=== PATIENT | female | born 1955 | race Caucasian/White ===

== ENCOUNTER 2016-11-26 11:21 | Observation (INO) | payer MEDICARE, MEDICAID ==
[2016-11-26] MEDS ORDERED: diphenhydrAMINE 50 MG/ML SDV IVPUSH SCH (20:45)
--- NOTE | 2016-11-26 20:49 | PCM.HP ---
H&P History of Present Illness - General Date of Service: 11/26/16 Admit Problem/Dx: Admission Diagnosis/Problem Admission Diagnosis/Problem Low back pain Source of Information: Patient History Limitations: Reports: No limitations - History of Present Illness Initial Comments - Free Text/Narative: History and physical: History of present illness: [Patient present to the hospital for direct admission on the evening of November for intractable low back pain. She was evaluated in the clinic earlier this morning and was treated with Toradol, Norflex and fentanyl. She was given prescriptions for hydrocodone, prednisone, cyclobenzaprine and ketorolac. Took medications as prescribed and has not had any relief from pain or gotten any sleep. She was evaluated by Dr. meade on November 21 and have an appointment with a neurosurgeon on November 30. She didn't feel she could make it until then without pain medication. She has a long-standing history of low back pain and surgery. She's had 3 or 4 episodes of significant low back discomfort in the past 6 months. She feels that time her pain is worse but the characteristics are unchanged from previous episodes. She complains of pain across her low back with radiation down both legs, worse on the left than the right. The pain shoots down her buttocks, behind her knees and into her feet. She has not been able to sleep for more than 2 hours at a time for the past 4 nights she says that she feels delirious due to lack of sleep and her constant pain. She presents this evening requesting admission to the hospital for IV pain medication. She has a history of RA, HTN, GERD. See nurses note for PMH/FH/SH. Review of Systems: As per history of present illness and below otherwise all systems reviewed and negative. Physical exam: HEENT: Atraumatic, normocephalic. Oral mucous membranes are pink and moist. Lungs: Clear to auscultation, breath sounds equal bilaterally. No wheezing crackles or rales. Heart: S1-S2, regular rate and rhythm. No murmurs gallops clicks or rubs. Abdomen: Overweight. Soft, nondistended, nontender. Negative for costovertebral tenderness. Pelvis: Stable, nontender. Genitourinary: Deferred. Rectal: Deferred. Extremities: Lower extremities are atraumatic in appearance and without deformity. Lower legs are negative for cords or calf pain. Neurovascular unremarkable. Neuro: Awake, alert, oriented. Motor and sensory unremarkable throughout. Exam nonfocal. Lower Back Pain Score (Numeric/FACES): 7 - Related Data Allergies/Adverse Reactions: Allergies Allergy/AdvReac Type Severity Reaction Status Date / Time abatacept [From Orencia] Allergy Airway Verified 10/12/15 13:24 Tightness cefaclor [From Ceclor] Allergy Rash Verified 10/12/15 13:24 ciprofloxacin [From Cipro] Allergy Cannot Verified 10/12/15 13:24 Remember ciprofloxacin HCl Allergy Cannot Verified 10/12/15 13:24 [From Cipro] Remember infliximab [From Remicade] Allergy Airway Verified 10/12/15 13:24 Tightness latex Allergy Rash Verified 10/12/15 13:24 Penicillins Allergy Airway Verified 10/12/15 13:24 Tightness tetracycline [Tetracycline] Allergy Rash Verified 10/12/15 13:24 Tape Allergy Rash Uncoded 10/12/15 13:24 Home Medications: Home Meds Cholecalciferol (Vitamin D3) [Vitamin D] 2,000 unit PO DAILY 10/18/13 [History] Nebivolol [Bystolic] 5 mg PO DAILY 10/18/13 [History] Ibuprofen [Advil] 400 mg PO ASDIRECTED PRN 02/21/14 [History] Cyclobenzaprine [Flexeril] 1 - 2 tab PO Q8HR PRN 12/05/14 [History] PEG 400/Propylene Glycol [Systane 0.4-0.3%] 1 drop EYEBOTH DAILY 12/05/14 [ History] Ranitidine [Zantac] 150 mg PO DAILY PRN 12/05/14 [History] Allopurinol [Zyloprim] 150 mg PO DAILY 11/26/16 [History] Methotrexate [Methotrexate] 0.6 mg SQ WEEKLY 11/26/16 [History] Past Medical History HEENT History: Reports: Cataract Cardiovascular History: Reports: Hypertension Respiratory History: Reports: Other (see below) Other Respiratory History: seasonal allergy induced asthma Gastrointestinal History: Reports: GERD Musculoskeletal History: Reports: Fibromyalgia, Gout, RA Psychiatric History: Reports: Anxiety Endocrine/Metabolic History: Reports: Vitamin D deficiency Dermatologic History: Reports: Eczema - Past Surgical History GI Surgical History: Reports: Cholecystectomy Neurological Surgical History: Reports: Spinal fusion Musculoskeletal Surgical History: Reports: Knee replacement, Other (see below) Other Musculoskeletal Surgeries/Procedures:: L4 and L5 fusion Social & Family History - Family History Family Medical History: Noncontributory - Tobacco Use Smoking Status *Q: Never Smoker Years of Tobacco use: 10 Used Tobacco, but Quit: Yes Month Tobacco Last Used: 8 years ago Second Hand Smoke Exposure: No - Alcohol Use Days Per Week of Alcohol Use: 0 - Recreational Drug Use Recreational Drug Use: No H&P Review of Systems - Review of Systems: Review Of Systems: ROS reveals no pertinent complaints other than HPI. Exam - Exam Exam: See Below - Vital Signs Vital Signs: Last Vital Signs Temp 97.6 F 11/26/16 19:50 Pulse 82 11/26/16 19:50 Resp 20 11/26/16 19:50 BP 149/75 H 11/26/16 19:50 Pulse Ox 98 11/26/16 19:50 Weight: 223 lb - Patient Data Lab Results last 24 hrs: Laboratory Results - last 24 hr 11/26/16 Range/Units 11:26 Urine Color Yellow (YELLOW) Urine Appearance Clear (CLEAR) Urine pH 6.0 (4.5-8.0) Ur Specific [place] 1.013 (1.003-1.020) Urine Protein Negative (NEGATIVE) mg/dL Urine Glucose (UA) Negative (NEGATIVE) mg/dL Urine Ketones Negative (NEGATIVE) mg/dL Urine Occult Blood Negative (NEGATIVE) Urine Nitrite Negative (NEGATIVE) Urine Bilirubin Negative (NEGATIVE) Urine Urobilinogen 0.2 (0.2-1.0) EU/dL Ur Leukocyte Esterase Small H (NEGATIVE) Urine RBC Not seen (0-5) /HPF Urine WBC 0-5 (0-5) /HPF Ur Epithelial Cells Few H (NOT SEEN) /HPF Urine Bacteria Occasional H (NOT SEEN) /HPF Urine Mucus Few H (NOT SEEN) /HPF *Q Meaningful Use (ADM) - VTE *Q VTE Criteria *Q: - Stroke *Q Stroke Criteria *Q: - AMI *Q AMI Criteria *Q: Problem List Initiated/Reviewed/Updated: Yes Orders Last 24hrs: Active Orders 24 hr Category Date Time Status Patient Status [ADT] Routine ADT 11/26/16 20:32 Ordered Oxygen Therapy [RC] PRN Care 11/26/16 20:32 Ordered Up With Assistance [RC] ASDIRECTED Care 11/26/16 20:32 Ordered VTE/DVT Education [RC] PER UNIT ROUTINE Care 11/26/16 20:32 Ordered Vital Signs [RC] Q4H Care 11/26/16 20:32 Ordered Regular Diet [DIET] Diet 11/27/16 Breakfast Ordered Enoxaparin [Lovenox] Med 11/26/16 20:45 Ordered 40 mg SUBCUT DAILY HYDROmorphone [Dilaudid] Med 11/26/16 20:32 Ordered 1 mg IVPUSH Q2H PRN Ondansetron [Zofran] Med 11/26/16 20:32 Ordered 4 mg IV Q4H PRN diphenhydrAMINE [Benadryl] Med 11/26/16 20:45 Ordered 25 mg IVPUSH Q4H methylPREDNISolone Sod Succ [Solu-MEDROL] Med 11/27/16 06:00 Once 125 mg IVPUSH ONETIME ONE Resuscitation Status Routine Resus Stat 11/26/16 20:32 Ordered Medication Orders Diphenhydramine HCl (Benadryl) 25 mg IVPUSH Q4H QI Enoxaparin Sodium (Lovenox) 40 mg SUBCUT DAILY QI Hydromorphone HCl (Dilaudid) 1 mg IVPUSH Q2H PRN PRN Reason: Pain (severe 7-10) Methylprednisolone Sodium Succinate (Solu-Medrol) 125 mg IVPUSH ONETIME ONE Stop: 11/27/16 06:01 Ondansetron HCl (Zofran) 4 mg IV Q4H PRN PRN Reason: Nausea/Vomiting Assessment/Plan Comment:: Admit For observation for IV pain medication, muscle relaxers. See orders. Anticipate the patient will be in observation less than 2 overnights.
[2016-11-26] MEDS ORDERED: diphenhydrAMINE 50 MG/ML SDV IVPUSH PRN ×2 (20:57→21:11)
[2016-11-26] MEDS: Enoxaparin 40 MG/0.4 ML Syringe SUBCUT SCH (21:05)
[2016-11-26] MEDS: Ondansetron 4 MG/2 ML SDV IV PRN (21:06)
[2016-11-26] MEDS: HYDROmorphone 1 MG/ML Syringe IVPUSH PRN (21:07)
[2016-11-27] MEDS: HYDROmorphone 1 MG/ML Syringe IVPUSH PRN ×2 (05:08→20:50)
[2016-11-27] MEDS ORDERED: methylPREDNISolone Sodium Succinate 125 MG/2 ML SDV IVPUSH ONE ×2 (06:00→08:00)
[2016-11-27] MEDS: Ondansetron 4 MG/2 ML SDV IV PRN (12:06)
[2016-11-27] MEDS ORDERED: Ketorolac 30 MG/ML SDV IVPUSH ONE (13:58)
--- NOTE | 2016-11-27 15:21 | PCM.PN ---
- General Info Date of Service: 11/27/16 Admission Dx/Problem (Free Text): Admission Diagnosis/Problem Admission Diagnosis/Problem Low back pain Subjective Update: Patients was admitted yesterday for observation for low back pain. She states that she slept well last night with Benadryl and Dilaudid. Her back pain has improved significantly. She feels nervous to be discharged home today and doesn' t mind stay one more night if it would be beneficial for her. She has no new symptoms. Overall back pain has improved. she continues to have radiation of pain down her left leg that is mildly improved. Nursing staff have no new complaints or concerns for her. Functional Status: Reports: tolerating diet. Denies: new symptoms - Review of Systems General: Denies: Fever, Malaise, Chills Pulmonary: Reports: no symptoms Cardiovascular: Reports: No Symptoms Gastrointestinal: Reports: No symptoms Musculoskeletal: Reports: back pain Skin: Reports: no symptoms Neurological: Denies: Confusion, Headache, Numbness, Tingling, Weakness Psychiatric: Reports: no symptoms - Patient Data Vitals - most recent: Last Vital Signs Temp 97.2 F 11/27/16 07:38 Pulse 68 11/27/16 07:38 Resp 16 11/27/16 07:38 BP 125/68 11/27/16 07:38 Pulse Ox 99 11/27/16 07:38 Weight - most recent: 223 lb I&O - last 24 hours: Intake & Output 11/27/16 11/27/16 11/27/16 06:59 14:59 22:59 Intake Total 880 Balance 880 Med Orders - Current: Current Medications Diphenhydramine HCl (Benadryl) 25 mg IVPUSH BID PRN PRN Reason: Itching Last Admin: 11/26/16 21:17 Dose: 25 mg Enoxaparin Sodium (Lovenox) 40 mg SUBCUT DAILY@2100 QI Last Admin: 11/26/16 21:05 Dose: 40 mg Hydromorphone HCl (Dilaudid) 1 mg IVPUSH Q2H PRN PRN Reason: Pain (severe 7-10) Last Admin: 11/27/16 05:08 Dose: 1 mg Ondansetron HCl (Zofran) 4 mg IV Q4H PRN PRN Reason: Nausea/Vomiting Last Admin: 11/27/16 12:06 Dose: 4 mg Discontinued Medications Diphenhydramine HCl (Benadryl) 25 mg IVPUSH Q4H QI Last Admin: 11/26/16 21:43 Dose: Not Given Diphenhydramine HCl (Benadryl) 25 mg IVPUSH Q4H PRN PRN Reason: Insomnia Ketorolac Tromethamine (Toradol) 30 mg IVPUSH ONETIME ONE Stop: 11/27/16 13:59 Last Admin: 11/27/16 14:17 Dose: 30 mg Methylprednisolone Sodium Succinate (Solu-Medrol) 125 mg IVPUSH ONETIME ONE Stop: 11/27/16 06:01 Last Admin: 11/27/16 07:49 Dose: Not Given Methylprednisolone Sodium Succinate (Solu-Medrol) 125 mg IVPUSH ONETIME ONE Stop: 11/27/16 08:01 Last Admin: 11/27/16 07:50 Dose: 125 mg - Exam General: alert, oriented Lungs: Clear to auscultation, Normal respiratory effort Cardiovascular: Regular Rate, Regular Rhythm Abdomen: soft, no tenderness Back Exam: No: CVA tenderness (L), CVA tenderness (R) Extremities: no edema, no cyanosis. No: calf tenderness Neurological: no new focal deficit Psy/Mental Status: alert, normal affect, normal mood - Problem List Review Problem List Initiated/Reviewed/Updated: Yes - My Orders Last 24 Hours: My Active Orders 11/26/16 20:32 Patient Status [ADT] Routine Oxygen Therapy [RC] .PRN Up With Assistance [RC] .PRN Vital Signs [RC] 0800,2000 HYDROmorphone [Dilaudid] 1 mg IVPUSH Q2H PRN Ondansetron [Zofran] 4 mg IV Q4H PRN Resuscitation Status Routine 11/26/16 21:00 Enoxaparin [Lovenox] 40 mg SUBCUT DAILY@2100 11/26/16 21:11 diphenhydrAMINE [Benadryl] 25 mg IVPUSH BID PRN 11/26/16 22:47 K Pad [Heat Therapy] [OM.PC] Routine 11/27/16 Breakfast Regular Diet [DIET] - Assessment Assessment:: Low back pain - Plan Plan:: Will keep patient in observation for one more night. Continue current treatments. Add Toradol 30 mg IV today, repeat Solu-Medrol tomorrow a.m. Continue all of her orders. Anticipate the patient will be discharged home following rounds by her PCP tomorrow morning.
[2016-11-27] MEDS: Enoxaparin 40 MG/0.4 ML Syringe SUBCUT SCH (20:50)
[2016-11-28 07:35] VITALS: BP 149/88
[2016-11-28] MEDS ORDERED: methylPREDNISolone Sodium Succinate 125 MG/2 ML SDV IVPUSH SCH (08:00)
[2016-11-28] MEDS: HYDROmorphone 1 MG/ML Syringe IVPUSH PRN (08:23)
[2016-11-28] MEDS ORDERED: Ondansetron 4 MG Tab.DIS PO PRN (10:34)
--- NOTE | 2016-11-29 08:55 | DISCH ---
ADMISSION DIAGNOSIS: Recalcitrant low back pain with radiculopathy. DISCHARGE DIAGNOSIS: RECALCITRANT LOW BACK PAIN WITH RADICULOPATHY. HISTORY: The patient is a 61-year-old, seen multiple times in the clinic. The week prior to admission, she has had a recurrence of her chronic low back pain with multiple acute exacerbations, this last one being the worst. She does have a history of prior lumbar spine surgery. She is actually scheduled to see Neurosurgery in 2 days. Pain became intolerant at home and she presented for admission. HOSPITAL COURSE: The patient was given some IV methylprednisolone, given IV Dilaudid for pain and she had a wonderful response. She is basically at this time laying comfortably in bed without pain. She is not having radicular complaints. She has been up and ambulating out of her bed. She does have anti- inflammatories, muscle relaxers, and p.r.n. pain medications at home. We are going to send her home on oral Dilaudid on a p.r.n. basis, as she feels it gives her the most relief and she feels comfortable going home, doing self cares until she get to Neurosurgery this upcoming Monday, which is 48 hours from now. COMPLICATIONS: During her stay were none. CONSULTATIONS: PT. DISPOSITION: Discharged home. JULIO CÉSAR /[id number]
== END 2016-11-28 15:25 | disposition home or self-care (01) ==
LOC: CC.LAB 11:21 → UNDOADMOB 19:41 → CC.MS 19:41
PROVIDERS: ADMIT Nurse Practitioner Family; ATTEND Family Medicine
DX: M54.5 Low back pain (principal); I10 Essential (primary) hypertension; K21.9 Gastro-esophageal reflux disease without esophagitis; E55.9 Vitamin D deficiency, unspecified; Z79.899 Other long term (current) drug therapy; Z88.0 Allergy status to penicillin; Z88.1 Allergy status to other antibiotic agents; Z91.040 Latex allergy status; Z88.8 Allergy status to other drugs, medicaments and biological substances; Z91.09 Other allergy status, other than to drugs and biological substances; Z90.49 Acquired absence of other specified parts of digestive tract; Z98.890 Other specified postprocedural states
CPT/HCPCS: 81001; 96372; 96374; 96375; 96376; 99217; 99220; 99225; A9270; G0378; J1170; J1200; J1650; J1885; J2405; J2930

== ENCOUNTER 2017-11-28 04:26 | Emergency (ER) | payer MEDICARE, MEDICAID ==
[2017-11-28 04:37] VITALS: BP 135/84
--- NOTE | 2017-11-28 05:04 | EDM.PDOC ---
ED HPI GENERAL MEDICAL PROBLEM - General Chief Complaint: General Stated Complaint: SHAKING ARMS Time Seen by Provider: 11/28/17 05:03 Source of Information: Reports: Patient History Limitations: Reports: No Limitations - History of Present Illness INITIAL COMMENTS - FREE TEXT/NARRATIVE: Santi is a 62 year old female with PMH of rheumatoid arthritis, Sjogrens syndrome, PCOS, hypertension, fibromyalgia, chronic low back pain, asthma, overactive bladder, gout, and GERD, who presents to the ED with c/o a 10 minute episode of "jerky arm and leg movements." She reports she woke up from sleep and her arms and legs were shaking. She reports her legs stopped immediately, but her arms continued to "twitch" involuntarily for about 10 minutes. She reports she then laid back down and sort of felt nauseaous and short of breath. This lasted about half hour. She reports that upon ER presentation she does feel better. All of her symptoms have resolved, but she does continue to have some nausea. She is alert and oriented and in no acute distress. She reports that she has had a viral URI for the past few weeks. Reports that as of recent her cough has improved. She continues to have nasal congestion. She reports that she also has a stiff neck and right shoulder and a headache. She reports her eyes have been red and swollen intermittently. She does have a history of seasonal allergies. Also reports that this evening she has had more nocturia than usual. She denies any abdominal pain, chest pain, diarrhea, vomiting, constipation, cough, fever, chills, numbness, tingling. Onset: Today, Sudden Onset Date: 11/28/17 Onset Time: 04:00 Duration: Resolved Prior to Arrival Location: Reports: Upper Extremity, Left, Upper Extremity, Right, Lower Extremity, Left, Lower Extremity, Right Associated Symptoms: Reports: Headaches, Malaise, Nausea/Vomiting, Shortness of Breath, Weakness. Denies: Confusion, Chest Pain, Cough, cough w sputum, Diaphoresis, Fever/Chills, Loss of Appetite, Rash, Seizure, Syncope - Related Data Allergies Allergy/AdvReac Type Severity Reaction Status Date / Time abatacept [From Orencia] Allergy Airway Verified 11/28/17 04:44 Tightness cefaclor [From Ceclor] Allergy Rash Verified 11/28/17 04:44 ciprofloxacin [From Cipro] Allergy Cannot Verified 11/28/17 04:44 Remember ciprofloxacin HCl Allergy Cannot Verified 11/28/17 04:44 [From Cipro] Remember infliximab [From Remicade] Allergy Airway Verified 11/28/17 04:44 Tightness latex Allergy Rash Verified 11/28/17 04:44 Penicillins Allergy Airway Verified 11/28/17 04:44 Tightness tetracycline [Tetracycline] Allergy Rash Verified 11/28/17 04:44 Tape Allergy Rash Uncoded 11/28/17 04:44 Home Meds: Home Meds Cholecalciferol (Vitamin D3) [Vitamin D3] 2,000 unit PO DAILY 10/18/13 [History] Nebivolol [Bystolic] 5 mg PO DAILY 10/18/13 [History] Ibuprofen [Advil] 400 mg PO ASDIRECTED PRN 02/21/14 [History] Cyclobenzaprine [Flexeril] 1 - 2 tab PO Q8HR PRN 12/05/14 [History] PEG 400/Propylene Glycol [Systane Lubricant] 1 drop EYEBOTH DAILY 12/05/14 [ History] Ranitidine [Zantac] 150 mg PO DAILY PRN 12/05/14 [History] Allopurinol [Zyloprim] 150 mg PO DAILY 11/26/16 [History] Methotrexate 0.6 mg SQ WEEKLY 11/26/16 [History] HYDROmorphone HCl [Dilaudid] 2 mg PO Q4HR #20 tablet 11/28/16 [Rx] Ascorbate Calcium [Vitamin C] 500 mg PO DAILY 11/28/17 [History] Folic Acid 0.8 mg PO DAILY 11/28/17 [History] Past Medical History HEENT History: Reports: Cataract Cardiovascular History: Reports: Hypertension Respiratory History: Reports: Other (See Below) Other Respiratory History: seasonal allergy induced asthma Gastrointestinal History: Reports: GERD Musculoskeletal History: Reports: Fibromyalgia, Gout, RA Psychiatric History: Reports: Anxiety Endocrine/Metabolic History: Reports: Vitamin D Deficiency Dermatologic History: Reports: Eczema - Past Surgical History GI Surgical History: Reports: Cholecystectomy Neurological Surgical History: Reports: Spinal Fusion Musculoskeletal Surgical History: Reports: Knee Replacement, Other (See Below) Social & Family History - Family History Family Medical History: Noncontributory - Tobacco Use Smoking Status *Q: Never Smoker Years of Tobacco use: 10 Used Tobacco, but Quit: Yes Month/Year Tobacco Last Used: 8 years ago Second Hand Smoke Exposure: No - Alcohol Use Days Per Week of Alcohol Use: 0 - Recreational Drug Use Recreational Drug Use: No ED ROS GENERAL - Review of Systems Review Of Systems: See Below Constitutional: Reports: Chills, Weakness, Fatigue, Decreased Appetite. Denies : Fever, Malaise, Night Sweats, Diaphoresis, Weight Loss, Weight Gain HEENT: Reports: Ear Pain (right ), Glasses, Rhinitis, Sinus Problem, Vertigo, Other (photosensitivity, intermittent eye redness and swelling). Denies: Dental Pain, Ear Discharge, Eye Discharge, Eye Pain, Hearing Loss, Nosebleed, Nose Pain, Throat Pain, Throat Swelling, Vision Change Respiratory: Reports: Shortness of Breath (resolved prior to arrival). Denies: Wheezing, Pleuritic Chest Pain, Cough, Sputum, Hemoptysis Cardiovascular: Denies: Chest Pain, Blood Pressure Problem, Claudication, Dyspnea on Exertion, Edema, Lightheadedness, Orthopnea, Palpitations, PND, Syncope Endocrine: Reports: Fatigue GI/Abdominal: Reports: Nausea. Denies: Abdominal Pain, Anorexia, Constipation, Diarrhea, Decreased Appetite, Distension, Stool Incontinence, Vomiting : Reports: Frequency. Denies: Dysuria, Flank Pain, Incontinence, Urgency Musculoskeletal: Reports: Neck Pain, Shoulder Pain (right), Joint Pain, Joint Swelling, Muscle Stiffness. Denies: Arm Pain, Hand Pain, Leg Pain Skin: Reports: Dryness Neurological: Reports: Headache, Tremors (UE, resolved prior to admission), Weakness. Denies: Confusion, Dizziness, Numbness, Paresthesia, Pre-Existing Deficit, Seizure, Syncope, Tingling, Trouble Speaking, Difficulty Walking, Change in Speech, Gait Disturbance Immunologic: Reports: Seasonal Allergy ED EXAM, GENERAL - Physical Exam Exam: See Below Exam Limited By: No Limitations General Appearance: Alert, WD/WN, No Apparent Distress Eye Exam: Bilateral Eye: Normal Fundi, Normal Inspection, PERRL Ears: Normal External Exam, Normal Canal, Hearing Grossly Normal, Normal TMs Nose: Normal Inspection, Normal Mucosa, No Blood Throat/Mouth: Normal Inspection, Normal Lips, Normal Teeth, Normal Gums, Normal Oropharynx, Normal Voice, No Airway Compromise, Other (dry mucous membranes) Head: Atraumatic, Normocephalic. No: Sinus Tenderness Neck: Normal Inspection, Supple, Full Range of Motion, Tender Lateral (right), Tender Midline. No: Lymphadenopathy (L), Lymphadenopathy (R) Respiratory/Chest: No Respiratory Distress, Lungs Clear, Normal Breath Sounds, No Accessory Muscle Use, Chest Non-Tender Cardiovascular: Normal Peripheral Pulses, Regular Rate, Rhythm, No Edema, No Gallop, No JVD, No Murmur, No Rub GI/Abdominal: Normal Bowel Sounds, Soft, Non-Tender, No Organomegaly, No Distention, No Abnormal Bruit, No Mass Back Exam: Normal Inspection, Full Range of Motion, NT Extremities: Normal Inspection, Normal Range of Motion, Non-Tender, Normal Capillary Refill, No Pedal Edema Neurological: Alert, Oriented, CN II-XII Intact, Normal Cognition, Normal Gait, Normal Reflexes, No Motor/Sensory Deficits Psychiatric: Anxious Skin Exam: Warm, Dry, Intact, Normal Color, No Rash Lymphatic: No Adenopathy Course - Vital Signs Last Recorded V/S: Last Vital Signs Temp 96.6 F 11/28/17 04:29 Pulse 66 11/28/17 04:29 Resp 18 11/28/17 04:29 BP 135/84 11/28/17 04:29 Pulse Ox 100 11/28/17 04:29 - Orders/Labs/Meds Orders: Active Orders 24 hr Category Date Time Status UA W/MICROSCOPIC [URIN] Stat Lab 11/28/17 04:45 Ordered Labs: Laboratory Tests 11/28/17 11/28/17 11/28/17 Range/Units 04:45 05:00 05:00 WBC 6.5 (5.0-10.0) 10^3/uL RBC 4.40 (4.00-5.50) 10^6/uL Hgb 12.1 (12.0-16.0) g/dL Hct 36.9 L (37.0-47.0) % MCV 83.9 (82.0-94.0) fL MCH 27.5 (27.0-32.0) pg MCHC 32.8 L (33.0-38.0) g/dL RDW Coeff of Gio 15.6 H (11.0-15.0) % Plt Count 244 (150-400) 10^3/uL Neut % (Auto) 59.2 (35-85) % Lymph % (Auto) 31.3 (10-55) % [place] % (Auto) 6.3 (0-16) % Eos % (Auto) 2.9 (0-5) % Baso % (Auto) 0.3 (0-3) % Neut # (Auto) 3.83 (1.80-7.00) 10^3/uL Lymph # (Auto) 2.03 (1.00-4.80) 10^3/uL [place] # (Auto) 0.41 (0.00-0.80) 10^3/uL Eos # (Auto) 0.19 (0.00-0.45) 10^3/uL Baso # (Auto) 0.02 10^3/uL Sodium 142 (136-145) mEq/L Potassium 3.8 (3.5-5.0) mEq/L Chloride 105 (98-106) mEq/L Carbon Dioxide 26 (21-32) mmol/L BUN 14 (7-18) mg/dL Creatinine 0.7 (0.6-1.0) mg/dL Est Cr Clr Drug Dosing 76.90 mL/min Estimated GFR (MDRD) > 60 (>=60) mL/min Glucose 98 (75-99) mg/dL Calcium 8.5 (8.4-10.1) mg/dL Total Bilirubin 0.7 (0.0-1.0) mg/dL AST 15 (15-37) U/L ALT 22 (12-78) U/L Alkaline Phosphatase 85 (46-116) U/L Troponin I < 0.017 (0.00-0.06) ng/mL C-Reactive Protein 0.3 (0.2-0.8) mg/dL Total Protein 6.7 (6.4-8.2) g/dL Albumin 3.1 L (3.4-5.0) g/dL Urine Color Yellow (YELLOW) Urine Appearance Clear (CLEAR) Urine pH 6.5 (4.5-8.0) Ur Specific [place] 1.020 (1.003-1.020) Urine Protein Negative (NEGATIVE) mg/dL Urine Glucose (UA) Negative (NEGATIVE) mg/dL Urine Ketones Negative (NEGATIVE) mg/dL Urine Occult Blood Negative (NEGATIVE) Urine Nitrite Negative (NEGATIVE) Urine Bilirubin Negative (NEGATIVE) Urine Urobilinogen 0.2 (0.2-1.0) EU/dL Ur Leukocyte Esterase Negative (NEGATIVE) Urine RBC Not seen (0-5) /HPF Urine WBC Not seen (0-5) /HPF Ur Squamous Epith Cells Occasional H (NOT SEEN) /HPF Urine Bacteria Occasional H (NOT SEEN) /HPF - Re-Assessments/Exams Free Text/Narrative Re-Assessment/Exam: 11/28/17 05:45 Discussed lab results with patient. Lab work all WNL. Discussed that I do not know exact cause of episode of symptoms, but I do not feel it is emergent based off resolution of symptoms and normal lab work. Patient does have neck stiffness and headache, but no elevated WBC or fever. She does have flexeril at home as needed for muscle spasms, but she did not take this prior to arrival. Will discharge home and have her follow up in clinic if symptoms recurr or worsen. Patient voiced understanding and is agreeable. Departure - Departure Time of Disposition: 05:54 Disposition: Home, Self-Care 01 Condition: Good Clinical Impression: Muscle tremor Rheumatoid arthritis Qualifiers: Rheumatoid arthritis location: multiple sites Rheumatoid factor presence: with rheumatoid factor Qualified Code(s): M05.79 - Rheumatoid arthritis with rheumatoid factor of multiple sites without organ or systems involvement - Discharge Information Instructions: Tremor, Muscle Cramps and Spasms, [id number] Referrals: Jennifer Denney, [facility] [Primary Care Provider] - Forms: ED Department Discharge Additional Instructions: Lab work all benign this morning Unknown cause of episode of muscle tremors/spasm/convulsion Schedule appointment with physical therapy for neck, shoulder, and back pain Previously prescribed flexeril as needed for muscle stiffness/spasms Push fluids Increase protein intake Follow up in clinic for recheck later this week if symptoms occur again - My Orders Last 24 Hours: My Active Orders 11/28/17 04:45 UA W/MICROSCOPIC [URIN] Stat - Assessment/Plan Last 24 Hours: My Active Orders 11/28/17 04:45 UA W/MICROSCOPIC [URIN] Stat
[2017-11-28 05:37] LABS: CHLORIDE,CL 105 mEq/L (98-106); SODIUM,NA 142 mEq/L (136-145)
== END 2017-11-28 06:01 | disposition home or self-care (01) ==
LOC: CC.ED 04:26
DX: M05.79 Rheumatoid arthritis with rheumatoid factor of multiple sites without organ or systems involvement (principal); R25.1 Tremor, unspecified; I10 Essential (primary) hypertension; Z88.1 Allergy status to other antibiotic agents; Z88.0 Allergy status to penicillin; Z91.048 Other nonmedicinal substance allergy status; Z79.899 Other long term (current) drug therapy; Z87.891 Personal history of nicotine dependence
CPT/HCPCS: 36415; 80053; 81001; 84484; 85025; 86140; 99284

== ENCOUNTER 2018-08-05 17:05 | Emergency (ER) | payer MEDICARE, MEDICAID ==
[2018-08-05 17:09] VITALS: BP 172/92
--- NOTE | 2018-08-05 17:18 | EDM.PDOC ---
ED HPI GENERAL MEDICAL PROBLEM - General Chief Complaint: Genitourinary Problem Stated Complaint: UTI worse Time Seen by Provider: 08/05/18 17:06 Source of Information: Reports: Patient History Limitations: Reports: No Limitations - History of Present Illness INITIAL COMMENTS - FREE TEXT/NARRATIVE: in with c/o UTI x 1 week, was started on macrobid on monday and sx are worse now, no fever ochills, has suprapubic pain, no NVDC, no neck/back pain or stiffness except pain in her lower back, is allergic to most all antibx. 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) (macrobid) Lower Back Pain Score (Numeric/FACES): 5 - Related Data Allergies Allergy/AdvReac Type Severity Reaction Status Date / Time abatacept [From Orencia] Allergy Airway Verified 08/05/18 17:11 Tightness cefaclor [From Ceclor] Allergy Rash Verified 08/05/18 17:11 ciprofloxacin [From Cipro] Allergy Cannot Verified 08/05/18 17:11 Remember ciprofloxacin HCl Allergy Cannot Verified 08/05/18 17:11 [From Cipro] Remember infliximab [From Remicade] Allergy Airway Verified 08/05/18 17:11 Tightness latex Allergy Rash Verified 08/05/18 17:11 Penicillins Allergy Airway Verified 08/05/18 17:11 Tightness tetracycline [Tetracycline] Allergy Rash Verified 08/05/18 17:11 Home Meds: Home Meds Cholecalciferol (Vitamin D3) [Vitamin D3] 2,000 unit PO DAILY 10/18/13 [History] Nebivolol [Bystolic] 5 mg PO DAILY 10/18/13 [History] Ibuprofen [Advil] 400 mg PO ASDIRECTED PRN 02/21/14 [History] Cyclobenzaprine [Flexeril] 1 - 2 tab PO Q8HR PRN 12/05/14 [History] PEG 400/Propylene Glycol [Systane Lubricant] 1 drop EYEBOTH DAILY 12/05/14 [ History] Ranitidine [Zantac] 150 mg PO DAILY PRN 12/05/14 [History] Allopurinol [Zyloprim] 150 mg PO DAILY 11/26/16 [History] Ascorbate Calcium [Vitamin C] 500 mg PO DAILY 11/28/17 [History] Folic Acid 0.8 mg PO DAILY 11/28/17 [History] Nitrofurantoin Monohyd/M-Cryst [Macrobid 100 mg Capsule] 100 mg PO BID 08/05/18 [History] Past Medical History HEENT History: Reports: Cataract Other HEENT History: GLASSES Cardiovascular History: Reports: Hypertension Respiratory History: Reports: Other (See Below) Other Respiratory History: seasonal allergy induced asthma Gastrointestinal History: Reports: GERD Musculoskeletal History: Reports: Fibromyalgia, Gout, RA Psychiatric History: Reports: Anxiety Endocrine/Metabolic History: Reports: Vitamin D Deficiency Dermatologic History: Reports: Eczema - Past Surgical History GI Surgical History: Reports: Cholecystectomy Neurological Surgical History: Reports: Spinal Fusion Musculoskeletal Surgical History: Reports: Knee Replacement, Other (See Below) Social & Family History - Family History Family Medical History: Noncontributory - Caffeine Use Caffeine Use: Reports: Coffee, Tea ED ROS GENERAL - Review of Systems Review Of Systems: See Below Constitutional: Denies: Fever, Chills HEENT: Reports: No Symptoms Respiratory: Reports: No Symptoms. Denies: Shortness of Breath, Cough Cardiovascular: Reports: No Symptoms. Denies: Chest Pain Endocrine: Reports: No Symptoms GI/Abdominal: Reports: Abdominal Pain (suprapubic tenderness) : Reports: Frequency, Pain. Denies: Discharge, Dysuria, Flank Pain, Hematuria Musculoskeletal: Reports: No Symptoms. Denies: Neck Pain Skin: Reports: No Symptoms Neurological: Reports: No Symptoms Psychiatric: Reports: No Symptoms ED EXAM, RENAL/ - Physical Exam Exam: See Below Exam Limited By: No Limitations General Appearance: Alert, WD/WN, No Apparent Distress Neck: Normal Inspection, Supple, Non-Tender Respiratory/Chest: No Respiratory Distress, Lungs Clear, Normal Breath Sounds Cardiovascular: Normal Peripheral Pulses, Regular Rate, Rhythm, No Edema, No Murmur GI/Abdominal: Normal Bowel Sounds, Soft, Tender (mild suprpubic tenderness with palpation) Back Exam: Normal Inspection, Full Range of Motion. No: CVA Tenderness (L), CVA Tenderness (R) Extremities: Normal Inspection, Normal Range of Motion, Non-Tender, No Pedal Edema, Normal Capillary Refill Neurological: Alert, Oriented, Normal Cognition, Normal Gait, No Motor/Sensory Deficits Psychiatric: Normal Affect, Normal Mood Skin Exam: Warm, Dry, Intact, Normal Color, No Rash Course - Vital Signs Last Recorded V/S: Last Vital Signs Temp 35.5 C 08/05/18 17:06 Pulse 86 08/05/18 17:06 Resp 20 08/05/18 17:06 BP 172/92 H 08/05/18 17:06 Pulse Ox 100 08/05/18 17:06 - Orders/Labs/Meds Orders: Active Orders 24 hr Category Date Time Status CULTURE URINE [RM] Stat Lab 08/05/18 17:12 Ordered Departure - Departure Time of Disposition: 17:25 Disposition: Home, Self-Care 01 Condition: Good Clinical Impression: UTI, Urinary tract infectious disease - Discharge Information *PRESCRIPTION DRUG MONITORING PROGRAM REVIEWED*: Not Applicable *COPY OF PRESCRIPTION DRUG MONITORING REPORT IN PATIENT JAKI: Not Applicable Instructions: Urinary Tract Infection, Adult, [id number] Additional Instructions: increase fluids stop macrobid Zthromax 500mg 1 x a day for 7 days pyridium 100mg 3 x a day for 2 days follow up with your family doctor on monday, , monday for an appointment time return to the ED as needed - Problem List & Annotations (1) UTI, Urinary tract infectious disease SNOMED Code(s): 80613839 Code(s): N39.0 - URINARY TRACT INFECTION, SITE NOT SPECIFIED Status: Acute Priority: Medium - Problem List Review Problem List Initiated/Reviewed/Updated: Yes - My Orders Last 24 Hours: My Active Orders 08/05/18 17:12 CULTURE URINE [RM] Stat - Assessment/Plan Last 24 Hours: My Active Orders 08/05/18 17:12 CULTURE URINE [RM] Stat Plan: will stop macrobid, as she has multiple allergies to the normal UTI antibx, I will try zithromax which she has tolerated in the past, a urine cx has been sent to the lab. see dc instructions, f/u with pcp this week
[2018-08-05] MEDS ORDERED: Azithromycin 250 MG Tab PO ONE (17:27)
[2018-08-05] MEDS ORDERED: Phenazopyridine 95 MG Tab PO SCH (18:00)
== END 2018-08-05 17:42 | disposition home or self-care (01) ==
LOC: CC.ED 17:05
DX: N39.0 Urinary tract infection, site not specified (principal); I10 Essential (primary) hypertension; Z88.8 Allergy status to other drugs, medicaments and biological substances; Z79.899 Other long term (current) drug therapy; Z87.891 Personal history of nicotine dependence
CPT/HCPCS: 87086; 99283; A9270

== ENCOUNTER 2019-09-20 18:05 | Emergency (ER) | payer MEDICARE, MEDICAID ==
[2019-09-20] MEDS ORDERED: Ondansetron 4 MG/2 ML SDV IVPUSH STA (18:36)
[2019-09-20 19:06] LABS: CHLORIDE,CL 98 mEq/L (98-106); SODIUM,NA 136 mEq/L (136-145)
[2019-09-20] MEDS ORDERED: Sodium Chloride 0.9% 1,000 ML IV ONE (19:18)
--- NOTE | 2019-09-20 19:24 | EDM.PDOC ---
ED HPI GENERAL MEDICAL PROBLEM - General Chief Complaint: General Stated Complaint: headache, neck/jaw pain Time Seen by Provider: 09/20/19 18:25 Source of Information: Reports: Patient History Limitations: Reports: No Limitations - History of Present Illness INITIAL COMMENTS - FREE TEXT/NARRATIVE: This patient is a 64 year old female that presents to the ER. Patient reports that on Monday she had a procedure at the dentist to have her left lower bottom molars removed and a plate. Patient reports she may have had a reaction during the procedure because her face was red during it. She reports that she returned to the dentist yesterday due to left lower gum pain, neck pain, headache that she experienced during procedure per patient. Patient reports that the pain has become worse. She reports was told yesterday she had infection and they removed the plate. She reports that the pain has continued and not gotten better. Patient reports that she did have some bruising form the procedure to the left lower jaw. Patient denies n, v, d, f, chest pain, shortness of breath, chest tightness, airway closing, difficulty swallowing, itching. Patient reports she has history of RA. Onset Date: 09/17/19 Duration: Day(s): (3), Getting Worse Location: Reports: Head, Face, Neck Quality: Reports: Throbbing Severity: Moderate Associated Symptoms: Reports: Headaches, Rash (facial). 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, Other Medication(s) (Ultram 1430) - Related Data Allergies Allergy/AdvReac Type Severity Reaction Status Date / Time abatacept [From Orencia] Allergy Airway Verified 09/20/19 18:42 Tightness cefaclor [From Ceclor] Allergy Rash Verified 09/20/19 18:42 ciprofloxacin [From Cipro] Allergy Cannot Verified 09/20/19 18:42 Remember ciprofloxacin HCl Allergy Cannot Verified 09/20/19 18:42 [From Cipro] Remember infliximab [From Remicade] Allergy Airway Verified 09/20/19 18:42 Tightness latex Allergy Rash Verified 09/20/19 18:42 morphine Allergy Agitation Verified 09/20/19 19:39 Penicillins Allergy Airway Verified 09/20/19 18:42 Tightness tetracycline [Tetracycline] Allergy Rash Verified 09/20/19 18:42 Home Meds: Home Meds Cholecalciferol (Vitamin D3) [Vitamin D3] 2,000 unit PO DAILY 10/18/13 [History] Nebivolol [Bystolic] 20 mg PO DAILY 10/18/13 [History] Cyclobenzaprine [Flexeril] 5 - 10 mg PO Q8HR PRN 12/05/14 [History] PEG 400/Propylene Glycol [Systane Lubricant] 1 drop EYEBOTH DAILY PRN 12/05/14 [ History] Allopurinol [Zyloprim] 150 mg PO DAILY 11/26/16 [History] Ascorbate Calcium [Vitamin C] 500 mg PO DAILY 11/28/17 [History] Acetaminophen [Acetaminophen Extra Strength] 1,000 mg PO Q4H PRN 09/20/19 [ History] Azithromycin [Zithromax] 1 tab PO DAILY 09/20/19 [History] Fluconazole [Diflucan] 50 mg PO ASDIRECTED 09/20/19 [History] traMADol [Ultram] 50 mg PO Q4H PRN 09/20/19 [History] Past Medical History HEENT History: Reports: Cataract Other HEENT History: GLASSES Cardiovascular History: Reports: Hypertension Other Cardiovascular History: leaky valve in heart Respiratory History: Reports: Other (See Below) Other Respiratory History: seasonal allergy induced asthma Gastrointestinal History: Reports: GERD 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 Musculoskeletal History: Reports: Fibromyalgia, Gout, RA Neurological History: Reports: Migraines Psychiatric History: Reports: Anxiety Endocrine/Metabolic History: Reports: Vitamin D Deficiency Hematologic History: Reports: Anemia, Iron Deficiency Dermatologic History: Reports: Eczema - Past Surgical History HEENT Surgical History: Reports: Oral Surgery, Tonsillectomy GI Surgical History: Reports: Cholecystectomy Neurological Surgical History: Reports: Spinal Fusion Other Neurological Surgeries/Procedures: fused L2-S1 Musculoskeletal Surgical History: Reports: Knee Replacement, Other (See Below) Other Musculoskeletal Surgeries/Procedures:: left knee replacement Social & Family History - Family History Family Medical History: Noncontributory - Tobacco Use Smoking Status *Q: Former Smoker Used Tobacco, but Quit: Yes Month/Year Tobacco Last Used: 20 - Caffeine Use Caffeine Use: Reports: Coffee - Recreational Drug Use Recreational Drug Use: No ED ROS GENERAL - Review of Systems Review Of Systems: See Below Constitutional: Reports: No Symptoms. Denies: Fever HEENT: Reports: Other (gum pain left lower where molars were removed x4. Swelling. ). Denies: Ear Discharge, Ear Pain, Eye Discharge, Eye Pain, Nosebleed, Throat Pain, Throat Swelling, Vision Change Respiratory: Reports: No Symptoms. Denies: Shortness of Breath Cardiovascular: Reports: No Symptoms. Denies: Chest Pain, Edema, Syncope Endocrine: Reports: No Symptoms GI/Abdominal: Reports: No Symptoms. Denies: Abdominal Pain, Nausea, Vomiting : Reports: No Symptoms Musculoskeletal: Reports: Neck Pain Skin: Reports: Erythema (face) Neurological: Reports: Headache. Denies: Confusion, Weakness Psychiatric: Reports: No Symptoms Hematologic/Lymphatic: Reports: No Symptoms Immunologic: Reports: Other ("dentist said i could have had a reaction during the prcedure.") ED EXAM, GENERAL - Physical Exam Exam: See Below Exam Limited By: No Limitations General Appearance: Alert, WD/WN, No Apparent Distress, Anxious Eye Exam: Bilateral Eye: EOMI, Normal Inspection, PERRL Ears: Normal External Exam, Normal Canal, Hearing Grossly Normal, Normal TMs Ear Exam: Bilateral Ear: Auricle Normal, Canal Normal, TM normal Nose: Normal Inspection, Normal Mucosa, No Blood Throat/Mouth: Normal Lips, Normal Oropharynx, Normal Voice, No Airway Compromise , Inflammation (left lower gum, left lower jaw. suture intact. tenderness. ). No: Perioral Cyanosis Head: Facial Swelling (left lower jaw), Facial Tenderness (left lower jaw. ROM intact. Eccymosis left lower jaw. ), Sinus Tenderness (left) Neck: Normal Inspection, Supple, Full Range of Motion, Tender Lateral (anterior left and posterior left. ). No: Carotid Bruit, Limited Range of Motion, Lymphadenopathy (L), Lymphadenopathy (R), Tender Midline, Thyromegaly Respiratory/Chest: No Respiratory Distress, Lungs Clear, Normal Breath Sounds, No Accessory Muscle Use Cardiovascular: Normal Peripheral Pulses, Regular Rate, Rhythm, No Edema, No Gallop, No JVD, No Murmur, No Rub Peripheral Pulses: 2+: Carotid (L), Carotid (R), Radial (L), Radial (R) GI/Abdominal: Soft, Non-Tender Extremities: Normal Inspection Neurological: Alert, Oriented Psychiatric: Anxious, Tearful Skin Exam: Warm, Dry, Intact, Ecchymosis (left lower jaw), Erythema (to the cheeks and chin), Rash (butterfly appearance to the cheeks, nasal bridge, forehead.) Lymphatic: No Adenopathy Course - Vital Signs Last Recorded V/S: Last Vital Signs Temp 96.1 F 09/20/19 20:37 Pulse 74 09/20/19 20:37 Resp 16 09/20/19 20:37 BP 150/88 H 09/20/19 20:37 Pulse Ox 100 09/20/19 20:37 - Orders/Labs/Meds Orders: Active Orders 24 hr Category Date Time Status Max Facial Sinus w Cont [CT] Stat Exams 09/20/19 19:16 Taken Soft Tissue Neck w Cont [CT] Stat Exams 09/20/19 19:16 Taken CULTURE BLOOD [BC] Stat Lab 09/20/19 18:35 Results CULTURE BLOOD [BC] Stat Lab 09/20/19 19:07 Received Blood Culture x2 Reflex Set [OM.PC] Stat Oth 09/20/19 18:35 Ordered Labs: Laboratory Tests 09/20/19 09/20/19 09/20/19 Range/Units 18:35 18:35 18:35 WBC 9.9 (5.0-10.0) 10^3/uL RBC 5.34 (4.00-5.50) 10^6/uL Hgb 14.0 (12.0-16.0) g/dL Hct 42.9 (37.0-47.0) % MCV 80.3 L (82.0-94.0) fL MCH 26.2 L (27.0-32.0) pg MCHC 32.6 L (33.0-38.0) g/dL RDW Coeff of Gio 14.9 (11.0-15.0) % Plt Count 316 (150-400) 10^3/uL Neut % (Auto) 68.7 (35-85) % Lymph % (Auto) 23.3 (10-55) % [place]bon % (Auto) 6.3 (0-16) % Eos % (Auto) 1.5 (0-5) % Baso % (Auto) 0.2 (0-3) % Neut # (Auto) 6.79 (1.80-7.00) 10^3/uL Lymph # (Auto) 2.30 (1.00-4.80) 10^3/uL [place] # (Auto) 0.62 (0.00-0.80) 10^3/uL Eos # (Auto) 0.15 (0.00-0.45) 10^3/uL Baso # (Auto) 0.02 10^3/uL Sodium 136 (136-145) mEq/L Potassium 4.0 (3.5-5.0) mEq/L Chloride 98 (98-106) mEq/L Carbon Dioxide 26 (21-32) mmol/L BUN 11 (7-18) mg/dL Creatinine 0.9 (0.6-1.0) mg/dL Est Cr Clr Drug Dosing 58.32 mL/min Estimated GFR (MDRD) > 60 (>=60) mL/min Glucose 128 H D (75-99) mg/dL Lactic Acid 2.0 (0.4-2.0) mmol/L Calcium 8.6 (8.4-10.1) mg/dL Total Bilirubin 0.4 (0.0-1.0) mg/dL AST 17 (15-37) U/L ALT 23 (12-78) U/L Alkaline Phosphatase 81 (46-116) U/L Total Protein 7.5 (6.4-8.2) g/dL Albumin 3.6 (3.4-5.0) g/dL Meds: Medications Discontinued Medications Generic Name Dose Route Start Last Admin Trade Name Freq PRN Reason Stop Dose Admin Sodium Chloride 1,000 mls @ 1,000 mls/hr 09/20/19 19:18 09/20/19 19:29 Normal Saline IV 09/20/19 20:17 1,000 mls/hr .BOLUS ONE Administration Iopamidol 100 ml 09/20/19 20:18 09/20/19 20:22 Isovue-370 (76%) IVPUSH 09/20/19 20:19 100 ml ONETIME ONE Administration Morphine Sulfate 4 mg 09/20/19 18:36 09/20/19 19:38 Morphine IVPUSH 09/20/19 18:37 Not Given ONETIME ONE Ondansetron HCl 4 mg 09/20/19 18:36 09/20/19 19:33 Zofran IVPUSH 09/20/19 18:37 4 mg NOW STA Administration Tramadol HCl 50 mg 09/20/19 19:25 09/20/19 19:37 Ultram PO 09/20/19 19:26 50 mg ONETIME ONE Administration - Radiology Interpretation Free Text/Narrative:: CT Sinus/neck with contrast: No abscess seen. Inflammation along the left anterior mandible. CT Results Date: 09/20/19 CT Results Time: 21:35 Departure - Departure Time of Disposition: 22:04 Disposition: Home, Self-Care 01 Condition: Fair Clinical Impression: Pain, dental - Discharge Information *PRESCRIPTION DRUG MONITORING PROGRAM REVIEWED*: Not Applicable *COPY OF PRESCRIPTION DRUG MONITORING REPORT IN PATIENT JAKI: Not Applicable Instructions: Dental Extraction, [id number] Referrals: PCP,None [Primary Care Provider] - Forms: ED Department Discharge Additional Instructions: Followup with your dentist Monday Return as needed IbuProfen as needed for pain and swelling Continue your antibiotics and Ultram as prescribed Ice to the area May take Benadryl as needed Sepsis Event Note - Evaluation Sepsis Screening Result: No Definite Risk - Focused Exam Vital Signs: Vital Signs Temp Pulse Resp BP BP Pulse Ox 09/20/19 20:37 96.1 F 74 16 150/88 H 100 09/20/19 18:05 98.4 F 80 18 180/100 H 98 Date Exam was Performed: 09/20/19 Time Exam was Performed: 22:04 - My Orders Last 24 Hours: My Active Orders 09/20/19 18:35 CULTURE BLOOD [BC] Stat Blood Culture x2 Reflex Set [OM.PC] Stat 09/20/19 19:07 CULTURE BLOOD [BC] Stat 09/20/19 19:16 Max Facial Sinus w Cont [CT] Stat Soft Tissue Neck w Cont [CT] Stat - Assessment/Plan Last 24 Hours: My Active Orders 09/20/19 18:35 CULTURE BLOOD [BC] Stat Blood Culture x2 Reflex Set [OM.PC] Stat 09/20/19 19:07 CULTURE BLOOD [BC] Stat 09/20/19 19:16 Max Facial Sinus w Cont [CT] Stat Soft Tissue Neck w Cont [CT] Stat Plan: PLEASE SEE RN NOTE FOR PFSH.
[2019-09-20] MEDS ORDERED: traMADol 50 MG Tab PO ONE (19:25)
[2019-09-20] MEDS ORDERED: Iopamidol 755 Mg/ML 100 ML Bottle IVPUSH ONE (20:18)
[2019-09-20 20:38] VITALS: BP 150/88; PULSE 74
== END 2019-09-20 22:10 | disposition home or self-care (01) ==
LOC: CC.ED 18:05
DX: K08.89 Other specified disorders of teeth and supporting structures (principal); I10 Essential (primary) hypertension; Z87.891 Personal history of nicotine dependence; Z88.0 Allergy status to penicillin; Z91.040 Latex allergy status; Z88.5 Allergy status to narcotic agent; Z88.1 Allergy status to other antibiotic agents
CPT/HCPCS: 36415; 70487; 70491; 80053; 83605; 85025; 87040; 96361; 96374; 99284; A9270; J2405; J7030; Q9967

== ENCOUNTER 2020-11-29 18:39 | Emergency (ER) | payer MEDICARE, MEDICAID ==
[2020-11-29 18:44] VITALS: BP 178/97; PULSE 70
[2020-11-29] MEDS ORDERED: Azithromycin 250 MG Tab PO ONE (19:05)
--- NOTE | 2020-11-29 19:10 | EDM.PDOC ---
ED HPI GENERAL MEDICAL PROBLEM - General Chief Complaint: General Stated Complaint: ? tooth abscess Time Seen by Provider: 11/29/20 19:02 Source of Information: Reports: Patient History Limitations: Reports: No Limitations - History of Present Illness INITIAL COMMENTS - FREE TEXT/NARRATIVE: Santi is a 65 year old female who presents to ER with complaints of tooth and jaw pain. Started having pain to right lower gumline near where she has a "broken off tooth" yesterday and today it is now in her jaw and radiating towards her ear. She contacted Dr. Thompson's office today, he recommended she get started on a course of zithromax today versus waiting. Is scheduled for a root extraction of the tooth on December 10 with him. Did not feel she could wait until tomorrow as has had a bad abscess in the past before. No fevers. No dysphagia. 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 Tooth/Teeth Pain Score (Numeric/FACES): 7 - Related Data Allergies Allergy/AdvReac Type Severity Reaction Status Date / Time abatacept [From Orencia] Allergy Airway Verified 11/29/20 18:44 Tightness cefaclor [From Ceclor] Allergy Rash Verified 11/29/20 18:44 ciprofloxacin [From Cipro] Allergy Cannot Verified 11/29/20 18:44 Remember ciprofloxacin HCl Allergy Cannot Verified 11/29/20 18:44 [From Cipro] Remember dexamethasone Allergy Agitation Verified 11/29/20 18:45 infliximab [From Remicade] Allergy Airway Verified 11/29/20 18:44 Tightness latex Allergy Rash Verified 11/29/20 18:44 morphine Allergy Agitation Verified 11/29/20 18:44 Penicillins Allergy Airway Verified 11/29/20 18:44 Tightness tetracycline [Tetracycline] Allergy Rash Verified 11/29/20 18:44 Home Meds: Home Meds Cholecalciferol (Vitamin D3) [Vitamin D3] 2,000 unit PO DAILY 10/18/13 [History] Nebivolol [Bystolic] 20 mg PO DAILY 10/18/13 [History] Cyclobenzaprine [Flexeril] 5 - 10 mg PO Q8HR PRN 12/05/14 [History] PEG 400/Propylene Glycol [Systane Lubricant] 1 drop EYEBOTH DAILY PRN 12/05/14 [History] Allopurinol [Zyloprim] 150 mg PO DAILY 11/26/16 [History] Ascorbate Calcium [Vitamin C] 500 mg PO DAILY 11/28/17 [History] Acetaminophen [Acetaminophen Extra Strength] 1,000 mg PO Q4H PRN 09/20/19 [History] Azithromycin [Zithromax] 1 tab PO DAILY PRN 09/20/19 [History] traMADol [Ultram] 12.5 mg PO ASDIRECTED 09/20/19 [History] Cimetidine [Tagamet] 200 mg PO DAILY 11/29/20 [History] Methotrexate 15 mg PO WEEKLY 11/29/20 [History] predniSONE [Prednisone] 3 mg PO DAILY 11/29/20 [History] Past Medical History HEENT History: Reports: Cataract Other HEENT History: GLASSES Cardiovascular History: Reports: Hypertension Other Cardiovascular History: leaky valve in heart Respiratory History: Reports: Other (See Below) Other Respiratory History: seasonal allergy induced asthma Gastrointestinal History: Reports: GERD 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 Musculoskeletal History: Reports: Fibromyalgia, Gout, RA Neurological History: Reports: Migraines Psychiatric History: Reports: Anxiety Endocrine/Metabolic History: Reports: Vitamin D Deficiency Hematologic History: Reports: Anemia, Iron Deficiency Dermatologic History: Reports: Eczema - Infectious Disease History Infectious Disease History: Reports: None - Past Surgical History HEENT Surgical History: Reports: Oral Surgery, Tonsillectomy Cardiovascular Surgical History: Reports: None Respiratory Surgical History: Reports: None GI Surgical History: Reports: Cholecystectomy Endocrine Surgical History: Reports: None Neurological Surgical History: Reports: Spinal Fusion Other Neurological Surgeries/Procedures: fused L2-S1 Musculoskeletal Surgical History: Reports: Carpal Tunnel, Knee Replacement, Other (See Below) Other Musculoskeletal Surgeries/Procedures:: left knee replacement Social & Family History - Family History Family Medical History: No Pertinent Family History - Tobacco Use Tobacco Use Status *Q: Former Tobacco User Used Tobacco, but Quit: Yes Month/Year Tobacco Last Used: 20 years ago - Caffeine Use Caffeine Use: Reports: Coffee, Tea - Recreational Drug Use Recreational Drug Use: No ED ROS GENERAL - Review of Systems Review Of Systems: See Below Constitutional: Denies: Fever, Chills, Malaise, Weakness, Fatigue HEENT: Reports: Dental Pain. Denies: Ear Pain, Sinus Problem, Throat Pain Respiratory: Reports: No Symptoms Cardiovascular: Reports: No Symptoms Endocrine: Reports: No Symptoms GI/Abdominal: Reports: No Symptoms ED EXAM, GENERAL - Physical Exam Exam: See Below Exam Limited By: No Limitations General Appearance: Alert, WD/WN, No Apparent Distress Ears: Normal External Exam, Normal TMs Nose: Normal Inspection, Normal Mucosa, No Blood Throat/Mouth: Other (patient is tender along her right jaw line. No swelling or redness. Incisor is broken off at the base. Tender to gum line) Head: Normocephalic Neck: Normal Inspection, Supple, Non-Tender Respiratory/Chest: No Respiratory Distress, Lungs Clear, Normal Breath Sounds Cardiovascular: Regular Rate, Rhythm Course - Vital Signs Last Recorded V/S: Last Vital Signs Temp 96.2 F L 11/29/20 18:40 Pulse 70 11/29/20 18:40 Resp 16 11/29/20 18:40 BP 178/97 H 11/29/20 18:40 Pulse Ox 99 11/29/20 18:40 - Orders/Labs/Meds Meds: Medications Discontinued Medications Generic Name Dose Route Start Last Admin Trade Name Davina PRN Reason Stop Dose Admin Azithromycin 500 mg 11/29/20 19:05 11/29/20 19:09 Azithromycin 250 Mg Tab PO 11/29/20 19:06 500 mg ONETIME ONE Administration Departure - Departure Time of Disposition: 19:14 Disposition: Home, Self-Care 01 Condition: Good Clinical Impression: Tooth infection - Discharge Information *PRESCRIPTION DRUG MONITORING PROGRAM REVIEWED*: No *COPY OF PRESCRIPTION DRUG MONITORING REPORT IN PATIENT JAKI: No Instructions: Dental Abscess Referrals: Brittney Bermudez PA [Primary Care Provider] - Forms: ED Department Discharge Additional Instructions: 1. Tylenol every 4 hours as needed for pain 2. Start daily zithromax 250 mg tomorrow 3. Follow up with Dr. Thompson as planned Sepsis Event Note (ED) - Evaluation Sepsis Screening Result: No Definite Risk - Focused Exam Vital Signs: Vital Signs Temp Pulse Resp BP Pulse Ox 11/29/20 18:40 96.2 F L 70 16 178/97 H 99
== END 2020-11-29 19:13 | disposition home or self-care (01) ==
LOC: CC.ED 18:39
DX: K04.7 Periapical abscess without sinus (principal); I10 Essential (primary) hypertension; K21.9 Gastro-esophageal reflux disease without esophagitis; M10.9 Gout, unspecified; Z87.891 Personal history of nicotine dependence; Z79.899 Other long term (current) drug therapy
CPT/HCPCS: 99282; 99283; A9270-GY

== ENCOUNTER 2021-07-17 10:05 | Emergency (ER) | payer MEDICARE, MEDICAID ==
--- NOTE | 2021-07-17 10:02 | EDM.PDOC ---
ED HPI GENERAL MEDICAL PROBLEM - General Chief Complaint: General Stated Complaint: RLQ Pain Time Seen by Provider: 07/17/21 10:10 Source of Information: Reports: Patient History Limitations: Reports: No Limitations - History of Present Illness INITIAL COMMENTS - FREE TEXT/NARRATIVE: Patient presents to the Ed for rlq pain that is worsening. She states that she has been having intermittent pain in that area for the last week. usually better with a bowel movement or eating. she was treated with antibiotics about a month ago for sinu infection and developed diarrhea after that but not black, bloody or mucus. Started a probiotic with some improvement. History of diverticulosis but never diverticulitis. on methotrexate for RA. No abdominal surgeries. Has had a decreased appetite over the last wee but no vomiting. Bowels with alternating constipation and diarrhea, but no black or blood. History of IBS, but not a problem for years. last night she developed chills, worsening pain in the rlq and minimal appetite today. Ate a 1/2 piece of toast today. fully vaccinated against covid , last injection 03/2021, no booster yet. no sick contacts, no bad food ingestion, no travel Duration: Getting Worse Location: Reports: Abdomen Quality: Reports: Ache Severity: Moderate Improves with: Reports: None rlq Pain Score (Numeric/FACES): 5 - Related Data Allergies Allergy/AdvReac Type Severity Reaction Status Date / Time abatacept [From Orencia] Allergy Airway Verified 07/17/21 10:09 Tightness cefaclor [From Ceclor] Allergy Rash Verified 07/17/21 10:09 ciprofloxacin [From Cipro] Allergy Cannot Verified 07/17/21 10:09 Remember ciprofloxacin HCl Allergy Cannot Verified 07/17/21 10:09 [From Cipro] Remember dexamethasone Allergy Agitation Verified 07/17/21 10:09 infliximab [From Remicade] Allergy Airway Verified 07/17/21 10:09 Tightness latex Allergy Rash Verified 07/17/21 10:09 morphine Allergy Agitation Verified 07/17/21 10:09 Penicillins Allergy Airway Verified 07/17/21 10:09 Tightness tetracycline [Tetracycline] Allergy Rash Verified 07/17/21 10:09 Home Meds: Home Meds Cholecalciferol (Vitamin D3) [Vitamin D3] 2,000 unit PO DAILY 10/18/13 [History] Nebivolol [Bystolic] 20 mg PO DAILY 10/18/13 [History] Cyclobenzaprine [Flexeril] 5 - 10 mg PO Q8HR PRN 12/05/14 [History] PEG 400/Propylene Glycol [Systane Lubricant] 1 drop EYEBOTH DAILY PRN 12/05/14 [History] Allopurinol [Zyloprim] 150 mg PO DAILY 11/26/16 [History] Ascorbate Calcium [Vitamin C] 500 mg PO DAILY 11/28/17 [History] Acetaminophen [Acetaminophen Extra Strength] 1,000 mg PO Q4H PRN 09/20/19 [History] Cimetidine [Tagamet] 200 mg PO DAILY 11/29/20 [History] Methotrexate 7.5 mg PO WEEKLY 11/29/20 [History] predniSONE [Prednisone] 1 mg PO DAILY 11/29/20 [History] Past Medical History HEENT History: Reports: Cataract Other HEENT History: GLASSES Cardiovascular History: Reports: Hypertension Other Cardiovascular History: leaky valve in heart Respiratory History: Reports: Other (See Below) Other Respiratory History: seasonal allergy induced asthma Gastrointestinal History: Reports: [employer] MA[employer]ING [employer] History: Reports: Fibroids Musculoskeletal History: Reports: Fibromyalgia, Gout, RA Neurological History: Reports: Migraines Psychiatric History: Reports: Anxiety Endocrine/Metabolic History: Reports: Vitamin D Deficiency Hematologic History: Reports: Anemia, Iron Deficiency Dermatologic History: Reports: Eczema - Infectious Disease History Infectious Disease History: Reports: None - Past Surgical History HEENT Surgical History: Reports: Oral Surgery, Tonsillectomy Cardiovascular Surgical History: Reports: None Respiratory Surgical History: Reports: None GI Surgical History: Reports: Cholecystectomy Endocrine Surgical History: Reports: None Neurological Surgical History: Reports: Spinal Fusion Other Neurological Surgeries/Procedures: fused L2-S1 Musculoskeletal Surgical History: Reports: Carpal Tunnel, Knee Replacement, Other (See Below) Other Musculoskeletal Surgeries/Procedures:: left knee replacement Social & Family History - Family History Family Medical History: No Pertinent Family History - Tobacco Use Tobacco Use Status *Q: Never Tobacco User - Caffeine Use Caffeine Use: Reports: Coffee, Tea - Recreational Drug Use Recreational Drug Use: No Drug Use in Last 12 Months: No ED ROS GENERAL - Review of Systems Review Of Systems: See Below Constitutional: Reports: Chills, Decreased Appetite HEENT: Denies: Dental Pain, Rhinitis, Throat Pain, Throat Swelling Respiratory: Reports: No Symptoms. Denies: Shortness of Breath, Wheezing, Cough Cardiovascular: Reports: No Symptoms. Denies: Chest Pain, Dyspnea on Exertion, Edema Endocrine: Reports: Fatigue GI/Abdominal: Reports: Abdominal Pain, Constipation, Diarrhea, Decreased Appetite, Nausea. Denies: Black Stool, Bloody Stool, Hematemesis, Hematochezia, Mucous in Stool, Vomiting : Reports: No Symptoms, Other (decreased output) Musculoskeletal: Reports: Joint Pain (chronically, unchanged) Skin: Reports: No Symptoms Neurological: Reports: No Symptoms. Denies: Confusion, Dizziness, Headache Psychiatric: Reports: No Symptoms ED EXAM, GI/ABD - Physical Exam Exam: See Below Exam Limited By: No Limitations General Appearance: Alert, WD/WN, No Apparent Distress Eyes: Bilateral: Normal Appearance, EOMI (PERRLA) Nose: Normal Inspection, Normal Mucosa Throat/Mouth: Other (dry mucous membranes) Head: Atraumatic Neck: Normal Inspection, Supple Respiratory/Chest: No Respiratory Distress, Lungs Clear Cardiovascular: Normal Peripheral Pulses, Regular Rate, Rhythm, No Gallop GI/Abdominal Exam: Soft, No Organomegaly, No Distention, Tender (rlq, no rebound), Abnormal Bowel Sounds (decreased) Extremities: Normal Inspection, Normal Range of Motion, Non-Tender, No Pedal Edema, Other (skin tenting) Neurological: Alert, Oriented Psychiatric: Normal Affect, Normal Mood Course - Vital Signs Last Recorded V/S: Last Vital Signs Temp 36.8 C 07/17/21 10:07 Pulse 79 07/17/21 10:07 Resp 18 07/17/21 10:07 BP 146/87 H 07/17/21 10:07 Pulse Ox 100 07/17/21 10:07 - Orders/Labs/Meds Orders: Active Orders 24 hr Category Date Time Status Peripheral IV Care [RC] . DIRECTED Care 07/17/21 10:03 Active Abdomen Pelvis w Cont [CT] Stat Exams 07/17/21 10:03 Taken Sodium Chloride 0.9% [Normal Saline] 1,000 ml Med 07/17/21 10:15 Active IV ASDIRECTED Sodium Chloride 0.9% [Saline Flush] Med 07/17/21 10:03 Active 10 ml FLUSH ASDIRECTED PRN metroNIDAZOLE/Normal Saline [Flagyl in NS 500 MG/100 ML Med 07/17/21 12:39 Active ] 500 mg Premix Bag 1 bag IV ONETIME Peripheral IV Insertion Adult [OM.PC] Routine Oth 07/17/21 10:03 Ordered Medication Orders Sodium Chloride (Normal Saline) 1,000 mls @ 1,000 mls/hr IV ASDIRECTED [facility] Last Admin: 07/17/21 10:48 Dose: 1,000 mls/hr Documented by: FATOU Metronidazole 500 mg/ Premix 100 mls @ 100 mls/hr IV ONETIME ONE Stop: 07/17/21 13:38 Sodium Chloride (Sodium Chloride 0.9% 10 Ml Syringe) 10 ml FLUSH ASDIRECTED PRN PRN Reason: Keep Vein Open Labs: Laboratory Tests 07/17/21 07/17/21 07/17/21 Range/Units 10:03 10:03 10:03 WBC 8.3 (4.0-11.0) 10^3/uL RBC 4.49 (4.00-5.50) x10^6/uL Hgb 12.8 (12.0-16.0) g/dL Hct 38.5 (37.0-47.0) % MCV 85.7 (83.0-97.0) fL MCH 28.5 (27.0-32.0) pg MCHC 33.2 (32.0-36.0) g/dL RDW Coeff of Gio 15.1 H (11.0-15.0) % Plt Count 282 (150-400) 10^3/uL MPV 9.3 fL Sodium 138 (136-145) mEq/L Potassium 3.7 (3.5-5.0) mEq/L Chloride 102 (98-106) mEq/L Carbon Dioxide 25 (21-32) mmol/L BUN 12 (7-18) mg/dL Creatinine 0.9 (0.6-1.0) mg/dL Est Cr Clr Drug Dosing 56.82 mL/min Estimated GFR (MDRD) > 60 (>=60) mL/min Glucose 105 H (75-99) mg/dL Calcium 8.7 (8.4-10.1) mg/dL Total Bilirubin 0.7 (0.0-1.0) mg/dL AST 15 (15-37) U/L ALT 17 (12-78) U/L Alkaline Phosphatase 80 (46-116) U/L C-Reactive Protein 0.7 (0.2-0.8) mg/dL Total Protein 6.9 (6.4-8.2) g/dL Albumin 3.4 (3.4-5.0) g/dL Lipase 42 L (73-393) U/L Urine Color Yellow (YELLOW) Urine Appearance Clear (CLEAR) Urine pH 5.5 (4.5-8.0) Ur Specific [place] 1.010 (1.003-1.020) Urine Protein Negative (NEGATIVE) mg/dL Urine Glucose (UA) Negative (NEGATIVE) mg/dL Urine Ketones Negative (NEGATIVE) mg/dL Urine Occult Blood Negative (NEGATIVE) Urine Nitrite Negative (NEGATIVE) Urine Bilirubin Negative (NEGATIVE) Urine Urobilinogen 0.2 (0.2-1.0) EU/dL Ur Leukocyte Esterase Negative (NEGATIVE) Meds: Medications Generic Name Dose Route Start Last Admin Trade Name Freq PRN Reason Stop Dose Admin Sodium Chloride 1,000 mls @ 1,000 mls/hr 07/17/21 10:15 07/17/21 10:48 Normal Saline IV 1,000 mls/hr ASDIRECTED QI Administration Metronidazole 500 mg/ Premix 100 mls @ 100 mls/hr 07/17/21 12:39 IV 07/17/21 13:38 ONETIME ONE Sodium Chloride 10 ml 07/17/21 10:03 Sodium Chloride 0.9% 10 Ml Syringe FLUSH ASDIRECTED PRN Keep Vein Open Discontinued Medications Generic Name Dose Route Start Last Admin Trade Name Davina PRN Reason Stop Dose Admin Iopamidol 100 ml 07/17/21 11:07 07/17/21 11:27 Iopamidol 755 Mg/Ml 100 Ml Bottle IVPUSH 07/17/21 11:08 100 ml ONETIME ONE Administration Ondansetron HCl 4 mg 07/17/21 10:03 07/17/21 10:48 Ondansetron 4 Mg/2 Ml Sdv IVPUSH 07/17/21 10:04 4 mg ONETIME ONE Administration - Radiology Interpretation Free Text/Narrative:: ct abdomen pelvis with IV contrast. fatty infiltration of the liver, appendix upper normal in size 9 mm, no significant stranding, diverticulosis descending and sigmoid colon, no diverticulitis discussed and interpreted by radiologist - Re-Assessments/Exams Free Text/Narrative Re-Assessment/Exam: 07/17/21 10:27 Note patient had routine labs on 07/15 for her pediatric immunologist. WBC 6.7, hemoglobin 12.8, crp 0.9 and rest normal with cbc and comp 14. Will place an iv due to clinical dehydration, lack of po intake. give one liter normal saline bolus, check labs, urine and get ct with IV contrast. Differential diagnosis includes appendicitis, diverticulitis, viral gastroenteritis, UTI. due to methotrexate, may not mount an immune response or WBC. Has tolerated IV contrast without problems in the past. 07/17/21 12:[address] with radiology. marginal appendix. patient would prefer [place] if possible. Call to discuss with surgeon information systems security analyst. They will review study and call us back. note no stranding around the appendix or signs of obstruction and normal labs. concern due to immunocompromised status. 07/17/21 12:56 call back from ivy Anguiano in [place]. Accepts for transfer. patient did drive self here. Needs to get her dog settled with friends. they will take her by POV. VSS, no altering medications given. patient understands risks and benefits and declines EMS transfer. will stay NPO and go by POV. IV left in right hand Departure - Departure Time of Disposition: 12:58 Disposition: DC/Tfer to Acute Hospital 02 Condition: Good Clinical Impression: Appendicitis - Discharge Information *PRESCRIPTION DRUG MONITORING PROGRAM REVIEWED*: Not Applicable *COPY OF PRESCRIPTION DRUG MONITORING REPORT IN PATIENT JAKI: Not Applicable Instructions: Laparoscopic Appendectomy, Adult Referrals: Brittney Bermudez PA [Primary Care Provider] - Forms: ED Department Discharge, Interfacility Transfer JOSE C Sepsis Event Note (ED) - Focused Exam Vital Signs: Vital Signs Temp Pulse Resp BP Pulse Ox 07/17/21 10:07 36.8 C 79 18 146/87 H 100 - My Orders Last 24 Hours: My Active Orders 07/17/21 10:03 Peripheral IV Care [RC] . DIRECTED Abdomen Pelvis w Cont [CT] Stat Sodium Chloride 0.9% [Saline Flush] 10 ml FLUSH ASDIRECTED PRN Peripheral IV Insertion Adult [OM.PC] Routine 07/17/21 10:15 Sodium Chloride 0.9% [Normal Saline] 1,000 ml IV ASDIRECTED 07/17/21 12:39 metroNIDAZOLE/Normal Saline [Flagyl in NS 500 MG/100 ML] 500 mg Premix Bag 1 bag IV ONETIME - Assessment/Plan Last 24 Hours: My Active Orders 07/17/21 10:03 Peripheral IV Care [RC] . DIRECTED Abdomen Pelvis w Cont [CT] Stat Sodium Chloride 0.9% [Saline Flush] 10 ml FLUSH ASDIRECTED PRN Peripheral IV Insertion Adult [OM.PC] Routine 07/17/21 10:15 Sodium Chloride 0.9% [Normal Saline] 1,000 ml IV ASDIRECTED 07/17/21 12:39 metroNIDAZOLE/Normal Saline [Flagyl in NS 500 MG/100 ML] 500 mg Premix Bag 1 bag IV ONETIME
[~2021-07-17 10:05] MED LIST: Ondansetron 4 MG/2 ML SDV IVPUSH ONE; Sodium Chloride 0.9% 10 ML Syringe FLUSH PRN
[2021-07-17 10:08] VITALS: BP 146/87; PULSE 79
[2021-07-17] MEDS ORDERED: Sodium Chloride 0.9% 1,000 ML IV SCH (10:15)
[2021-07-17 10:35] LABS: CHLORIDE,CL 102 mEq/L (98-106); SODIUM,NA 138 mEq/L (136-145)
[2021-07-17] MEDS ORDERED: Iopamidol 755 Mg/ML 100 ML Bottle IVPUSH ONE (11:07)
[2021-07-17] MEDS ORDERED: metroNIDAZOLE/Normal Saline 500 MG in Premix Bag 1 BAG IV ONE (12:39)
== END 2021-07-17 13:31 | disposition critical access hospital (66) ==
LOC: CC.ED 10:05
DX: K37 Unspecified appendicitis (principal); I10 Essential (primary) hypertension; K21.9 Gastro-esophageal reflux disease without esophagitis; Z88.0 Allergy status to penicillin; Z88.5 Allergy status to narcotic agent; Z91.040 Latex allergy status; Z88.1 Allergy status to other antibiotic agents; Z88.8 Allergy status to other drugs, medicaments and biological substances
CPT/HCPCS: 36415; 74177; 80053; 81003; 83690; 85027; 86140; 96374; 99285; J2405; J7030; Q9967

== ENCOUNTER 2021-11-27 13:16 | Emergency (ER) | payer MEDICARE, MEDICAID ==
[2021-11-27] MEDS ORDERED: Orphenadrine 60 MG/2 ML Inj IM ONE (13:26)
[2021-11-27 13:27] VITALS: BP 129/85; PULSE 82
[2021-11-27] MEDS ORDERED: Acetaminophen 500 MG Tab PO ONE (13:27)
[2021-11-27] MEDS ORDERED: Take Home: Orphenadrine 100 MG Tab.ER, 4 Tab Pack PO ONE (14:58)
== END 2021-11-27 15:10 | disposition home or self-care (01) ==
LOC: CC.ED 13:16
DX: M62.830 Muscle spasm of back (principal); I10 Essential (primary) hypertension; M10.9 Gout, unspecified; K21.9 Gastro-esophageal reflux disease without esophagitis; Z88.1 Allergy status to other antibiotic agents; Z88.8 Allergy status to other drugs, medicaments and biological substances; Z88.0 Allergy status to penicillin; Z91.040 Latex allergy status; Z79.899 Other long term (current) drug therapy; Z87.891 Personal history of nicotine dependence
CPT/HCPCS: 96372; 99283; A9270-GY; J2360

== ENCOUNTER 2022-04-06 18:05 | Emergency (ER) | payer MEDICARE, MEDICAID ==
[2022-04-06 18:25] VITALS: BP 152/82; PULSE 73
== END 2022-04-06 19:08 | disposition home or self-care (01) ==
LOC: CC.ED 18:05
DX: L76.32 Postprocedural hematoma of skin and subcutaneous tissue following other procedure (principal); I10 Essential (primary) hypertension; Z88.8 Allergy status to other drugs, medicaments and biological substances; Z88.1 Allergy status to other antibiotic agents; Z91.040 Latex allergy status; Z88.6 Allergy status to analgesic agent; Z88.0 Allergy status to penicillin; Z79.899 Other long term (current) drug therapy; Z90.49 Acquired absence of other specified parts of digestive tract
CPT/HCPCS: 99283

== ENCOUNTER 2022-04-08 05:55 | Emergency (ER) | payer MEDICARE, MEDICAID ==
[2022-04-08 06:08] VITALS: BP 113/73; PULSE 78
[2022-04-08] MEDS: Iopamidol 755 Mg/ML 100 ML Bottle IVPUSH ONE (06:41)
== END 2022-04-08 08:46 | disposition home or self-care (01) ==
LOC: CC.ED 05:55
DX: L76.34 Postprocedural seroma of skin and subcutaneous tissue following other procedure (principal); I10 Essential (primary) hypertension; K21.9 Gastro-esophageal reflux disease without esophagitis; M10.9 Gout, unspecified; Z88.1 Allergy status to other antibiotic agents; Z88.8 Allergy status to other drugs, medicaments and biological substances; Z88.5 Allergy status to narcotic agent; Z91.041 Radiographic dye allergy status; Z79.82 Long term (current) use of aspirin; Z79.899 Other long term (current) drug therapy
CPT/HCPCS: 36415; 72193; 80053; 81001; 85025; 99284; Q9967

== ENCOUNTER 2022-04-17 12:10 | Emergency (ER) | payer MEDICARE, MEDICAID ==
[2022-04-17 12:19] VITALS: BP 155/89; PULSE 70
[2022-04-17] MEDS: Sodium Chloride 0.9% 1,000 ML IV ONE (13:12)
[2022-04-17] MEDS: Cefepime 2 GM Vial IVPUSH SCH (15:58)
== END 2022-04-17 16:12 | disposition home or self-care (01) ==
LOC: CC.ED 12:10
DX: R53.1 Weakness (principal); R19.7 Diarrhea, unspecified; T36.8X5A Adverse effect of other systemic antibiotics, initial encounter; T81.41XD Infection following a procedure, superficial incisional surgical site, subsequent encounter; I10 Essential (primary) hypertension; Z88.1 Allergy status to other antibiotic agents; Z88.8 Allergy status to other drugs, medicaments and biological substances; Z91.040 Latex allergy status; Z88.6 Allergy status to analgesic agent; Z88.0 Allergy status to penicillin; Z79.899 Other long term (current) drug therapy; Z79.82 Long term (current) use of aspirin; Z90.49 Acquired absence of other specified parts of digestive tract; Z20.822 Contact with and (suspected) exposure to COVID-19
CPT/HCPCS: 36415; 71046; 80053; 81003; 83605; 85027; 86140; 87040; 96361; 96374; 99285; J0692; J7030; U0002; 99284

== ENCOUNTER 2022-04-21 13:05 | Emergency (ER) | payer MEDICARE, MEDICAID ==
[2022-04-21 13:42] VITALS: BP 158/73; PULSE 73
== END 2022-04-21 14:26 | disposition home or self-care (01) ==
LOC: SUPCPDRO 13:05 → CC.ED 13:05
DX: R07.89 Other chest pain (principal); I10 Essential (primary) hypertension; K21.9 Gastro-esophageal reflux disease without esophagitis; Z91.040 Latex allergy status; Z88.0 Allergy status to penicillin; Z88.5 Allergy status to narcotic agent; Z88.1 Allergy status to other antibiotic agents; Z88.8 Allergy status to other drugs, medicaments and biological substances; Z79.899 Other long term (current) drug therapy; Z79.82 Long term (current) use of aspirin
CPT/HCPCS: 36415; 71045; 80053; 83605; 83735; 84484; 85025; 86140; 93005; 93010; 97605-GP; 99284; 99285

== ENCOUNTER 2022-07-16 10:21 | Emergency (ER) | payer MEDICARE, MEDICAID ==
[2022-07-16 10:43] VITALS: BP 139/67; PULSE 62
[2022-07-16 11:02] LABS: PTT,PARTIAL THROMBOPLSTIN TIME 23.6 SEC (23.2-32.3)
== END 2022-07-16 12:15 | disposition home or self-care (01) ==
LOC: CC.ED 10:21
DX: M79.605 Pain in left leg (principal); I10 Essential (primary) hypertension; Z88.1 Allergy status to other antibiotic agents; Z91.040 Latex allergy status; Z88.6 Allergy status to analgesic agent; Z88.0 Allergy status to penicillin; Z79.899 Other long term (current) drug therapy; Z79.82 Long term (current) use of aspirin; Z90.49 Acquired absence of other specified parts of digestive tract
CPT/HCPCS: 36415; 80053; 85025; 85610; 85730; 93971-LT; 99284

== ENCOUNTER 2022-08-08 12:52 | Emergency (ER) | payer MEDICARE, MEDICAID ==
[2022-08-08 13:06] VITALS: BP 159/78; PULSE 62
[2022-08-08] MEDS ORDERED: Nirmatrelvir/Ritonavir 300 MG/100 MG Dose Pack PO SCH (14:15)
== END 2022-08-08 14:19 | disposition home or self-care (01) ==
LOC: CC.ED 12:52
DX: U07.1 COVID-19 (principal); I10 Essential (primary) hypertension; K21.9 Gastro-esophageal reflux disease without esophagitis; Z88.1 Allergy status to other antibiotic agents; Z88.8 Allergy status to other drugs, medicaments and biological substances; Z91.040 Latex allergy status; Z88.5 Allergy status to narcotic agent; Z79.82 Long term (current) use of aspirin; Z79.899 Other long term (current) drug therapy
CPT/HCPCS: 99283; A9270-GY

== ENCOUNTER 2023-11-30 05:22 | Day surgery (SDC) | payer MEDICARE, MEDICAID ==
[2023-11-30] MEDS: Cyclopentolat/Tropic/Phenyleph 1 ML Ophth Drop SDV EYELF SCH (05:56)
[2023-11-30] MEDS: Lactated Ringers 1,000 ML IV SCH (05:56)
[2023-11-30] MEDS ORDERED: Midazolam 1 MG/ML 2 ML SDV ONE (06:30)
[2023-11-30] MEDS: Tetracaine HCl/PF 0.5% 4 ML Bottle EYERT ONE (06:41)
[2023-11-30] MEDS: Brimonidine 0.2% Ophth Soln 5 ML Bottle EYERT ONE (06:41)
[2023-11-30] MEDS: Povidone-Iodine 5% Sterile Ophth Soln 30 ML Bottle EYERT ONE (06:41)
[2023-11-30] MEDS: MOXIFLOXACIN PF in BSS 1 MG/ML VIAL ICORN ONE (06:41)
[2023-11-30] MEDS: Lidocaine 1% 5 ML VIAL INJECT ONE (06:41)
[2023-11-30] MEDS: Phenyleprhine/Ketorolac 4 ML Vial IO ONE (06:41)
[2023-11-30] MEDS ORDERED: acetaZOLAMIDE 500 MG Cap.ER PO ONE (07:30)
[2023-11-30 08:14] VITALS: BP 119/63; PULSE 72
== END 2023-11-30 08:20 | disposition home or self-care (01) ==
LOC: CC.SDS 05:22
PROVIDERS: ATTEND Ophthalmology
DX: H26.9 Unspecified cataract (principal); I10 Essential (primary) hypertension; K21.9 Gastro-esophageal reflux disease without esophagitis; M81.0 Age-related osteoporosis without current pathological fracture; M06.9 Rheumatoid arthritis, unspecified; J45.909 Unspecified asthma, uncomplicated; Z87.891 Personal history of nicotine dependence; Z79.899 Other long term (current) drug therapy; Z91.040 Latex allergy status; Z88.1 Allergy status to other antibiotic agents; Z88.8 Allergy status to other drugs, medicaments and biological substances; Z88.2 Allergy status to sulfonamides
CPT/HCPCS: 00142; J1097; J2250; J3490; J7120

== ENCOUNTER 2024-03-28 05:20 | Day surgery (SDC) | payer MEDICARE, MEDICAID ==
[2024-03-28] MEDS: Lactated Ringers 1,000 ML IV SCH (05:36)
[2024-03-28] MEDS: Cyclopentolat/Tropic/Phenyleph 1 ML Ophth Drop SDV EYERT SCH (05:36)
[2024-03-28] MEDS ORDERED: Midazolam 1 MG/ML 2 ML SDV ONE (06:22)
[2024-03-28] MEDS: Tetracaine HCl/PF 0.5% 4 ML Bottle EYERT ONE (06:37)
[2024-03-28] MEDS: Phenyleprhine/Ketorolac 4 ML Vial OP ONE (06:37)
[2024-03-28] MEDS: Lidocaine 1% PF 2 ML SDV INJECT ONE (06:37)
[2024-03-28] MEDS: Povidone-Iodine 5% Sterile Ophth Soln 30 ML Bottle EYERT ONE (06:38)
[2024-03-28] MEDS: Brimonidine 0.2% Ophth Soln 5 ML Bottle EYERT ONE (06:38)
[2024-03-28] MEDS: MOXIFLOXACIN PF in BSS 1 MG/ML VIAL IO ONE (06:38)
[2024-03-28 09:23] VITALS: BP 117/73; PULSE 73
== END 2024-03-28 07:50 | disposition home or self-care (01) ==
LOC: CC.SDS 05:20
PROVIDERS: ATTEND Ophthalmology
DX: H52.31 Anisometropia (principal); E11.36 Type 2 diabetes mellitus with diabetic cataract; H26.9 Unspecified cataract; K21.9 Gastro-esophageal reflux disease without esophagitis; I10 Essential (primary) hypertension; E66.9 Obesity, unspecified; Z96.1 Presence of intraocular lens; Z88.5 Allergy status to narcotic agent; Z88.0 Allergy status to penicillin; Z88.2 Allergy status to sulfonamides; Z88.8 Allergy status to other drugs, medicaments and biological substances; Z79.899 Other long term (current) drug therapy; Z68.35 Body mass index [BMI] 35.0-35.9, adult
CPT/HCPCS: J1097; J2250; J3490; J7120

== ENCOUNTER 2024-10-13 17:00 | Emergency (ER) | payer MEDICARE, MEDICAID ==
[2024-10-13 17:20] LABS: BASOPHILS ABSOLUTE AUTO 0.03 10^3/uL (0.00-0.50); BASOPHILS PERCENT AUTO 0.4 % (0-1); EOSINOPHILS ABSOLUTE AUTO 0.25 10^3/uL (0.00-1.50); EOSINOPHILS PERCENT AUTO 3.7 % (0-6); HEMATOCRIT 40.6 % (37.0-47.0); HEMOGLOBIN 13.3 g/dL (12.0-16.0); IMMATURE GRAN ABSOLUTE AUTO 0.01 10^3/uL (0.00-0.49); IMMATURE GRAN PERCENT AUTO 0.1 % (0.0-4.9); LYMPHOCYTES ABSOLUTE AUTO 2.42 10^3/uL (0.60-5.00); MEAN CORPUSCULAR HEMOGLOBIN 27.9 pg (27.0-32.0); MEAN CORPUSCULAR HGB CONC 32.8 g/dL (32.0-36.0); MEAN CORPUSCULAR VOLUME 85.1 fL (83.0-97.0); MONOCYTES ABSOLUTE AUTO 0.66 10^3/uL (0.00-1.50); MONOCYTES PERCENT AUTO 9.8 % (0-10); NEUTROPHILS ABSOLUTE AUTO 3.35 x10^3/uL (1.80-8.00); PLATELET COUNT,PLT 257 10^3/uL (150-400); RED BLOOD CELL COUNT 4.77 x10^6/uL (4.00-5.50); WHITE BLOOD CELL COUNT,WBC 6.7 10^3/uL (4.0-11.0)
[2024-10-13 17:33] LABS: ALBUMIN 3.1 g/dL (3.4-5.0); BILIRUBIN TOTAL 0.4 mg/dL (0.0-1.0); CALCIUM 8.4 mg/dL (8.4-10.1); CREATININE 0.8 mg/dL (0.6-1.0); EST CRCL DRUG DOSING (CG) 61.4 mL/min; MAGNESIUM 1.9 mg/dL (1.8-2.4); POTASSIUM,K 3.7 mEq/L (3.5-5.0); PROTEIN TOTAL,TP 6.5 g/dL (6.4-8.2)
[2024-10-13 17:41] VITALS: BP 150/70; PULSE 84
[2024-10-13] MEDS: Take Home: Ondansetron 4 MG Tab.DIS, 2 Tab Pack PO ONE (18:15)
[2024-10-13] MEDS: Cefadroxil 500 MG Cap PO STA (18:22)
== END 2024-10-13 18:20 | disposition home or self-care (01) ==
LOC: CC.ED 17:00
DX: J01.10 Acute frontal sinusitis, unspecified (principal); I10 Essential (primary) hypertension; J45.909 Unspecified asthma, uncomplicated; Z90.49 Acquired absence of other specified parts of digestive tract; Z88.1 Allergy status to other antibiotic agents; Z88.0 Allergy status to penicillin; Z88.2 Allergy status to sulfonamides; Z88.8 Allergy status to other drugs, medicaments and biological substances; Z79.51 Long term (current) use of inhaled steroids; Z79.899 Other long term (current) drug therapy
CPT/HCPCS: 36415; 80053; 83735; 85025; 87428-QW; 99284; A9270-GY

== ENCOUNTER 2024-12-30 12:16 | Emergency (ER) | payer MEDICARE, MEDICAID ==
[2024-12-30 12:53] VITALS: BP 160/90; PULSE 66
[2024-12-30 13:03] LABS: BASOPHILS ABSOLUTE AUTO 0.05 10^3/uL (0.00-0.50); BASOPHILS PERCENT AUTO 0.5 % (0-1); EOSINOPHILS ABSOLUTE AUTO 0.13 10^3/uL (0.00-1.50); EOSINOPHILS PERCENT AUTO 1.2 % (0-6); HEMATOCRIT 41.4 % (37.0-47.0); HEMOGLOBIN 13.9 g/dL (12.0-16.0); IMMATURE GRAN ABSOLUTE AUTO 0.09 10^3/uL (0.00-0.49); IMMATURE GRAN PERCENT AUTO 0.8 % (0.0-4.9); LYMPHOCYTES ABSOLUTE AUTO 2.23 10^3/uL (0.60-5.00); LYMPHOCYTES PERCENT AUTO 20.9 % (24-44); MEAN CORPUSCULAR HEMOGLOBIN 28.5 pg (27.0-32.0); MEAN CORPUSCULAR HGB CONC 33.6 g/dL (32.0-36.0); MEAN CORPUSCULAR VOLUME 84.8 fL (83.0-97.0); MONOCYTES ABSOLUTE AUTO 0.47 10^3/uL (0.00-1.50); MONOCYTES PERCENT AUTO 4.4 % (0-10); NEUTROPHILS PERCENT AUTO 72.2 % (41-71); PLATELET COUNT,PLT 311 10^3/uL (150-400); RED BLOOD CELL COUNT 4.88 x10^6/uL (4.00-5.50); WHITE BLOOD CELL COUNT,WBC 10.7 10^3/uL (4.0-11.0)
[2024-12-30 13:14] LABS: ALANINE AMINOTRANSFERASE,ALT 31 U/L (12-78); ALBUMIN 3.6 g/dL (3.4-5.0); ALKALINE PHOSPHATASE 82 U/L (46-116); ASPARTATE AMNIOTRANSFERASE,AST 17 U/L (15-37); BILIRUBIN TOTAL 0.5 mg/dL (0.0-1.0); BLOOD UREA NITROGEN,BUN 16 mg/dL (7-18); CARBON DIOXIDE,CO2 25 mmol/L (21-32); CHLORIDE,CL 101 mEq/L (98-106); CREATINE KINASE,CK 30 U/L (21-215); EST CRCL DRUG DOSING (CG) 47.14 mL/min; GLUCOSE RANDOM 134 mg/dL (75-99); POTASSIUM,K 3.6 mEq/L (3.5-5.0); PROTEIN TOTAL,TP 7.3 g/dL (6.4-8.2); SODIUM,NA 136 mEq/L (136-145)
[2024-12-30 13:15] LABS: C-REACTIVE PROTEIN < 0.50 mg/dL (<=0.50); ESTIMATED GFR 62 mL/min (>=60)
[2024-12-30 13:17] LABS: SEDIMENTATION RATE MANUAL 5 mm/hr (0-20)
== END 2024-12-30 14:32 | disposition home or self-care (01) ==
LOC: SUPCPDRO 12:16 → CC.ED 12:16
DX: R29.898 Other symptoms and signs involving the musculoskeletal system (principal); I10 Essential (primary) hypertension; Z88.0 Allergy status to penicillin; Z88.2 Allergy status to sulfonamides; Z88.8 Allergy status to other drugs, medicaments and biological substances; Z91.048 Other nonmedicinal substance allergy status; Z90.49 Acquired absence of other specified parts of digestive tract
CPT/HCPCS: 36415; 72131; 80053; 82550; 85025; 85651; 86140; 99285

== ENCOUNTER 2025-07-05 00:54 | Observation (INO) | payer MEDICARE, MEDICAID ==
[2025-07-05 01:28] LABS: BASOPHILS ABSOLUTE AUTO 0.02 10^3/uL (0.00-0.50); BASOPHILS PERCENT AUTO 0.2 % (0-1); EOSINOPHILS ABSOLUTE AUTO 0.18 10^3/uL (0.00-1.50); EOSINOPHILS PERCENT AUTO 2.2 % (0-6); IMMATURE GRAN ABSOLUTE AUTO 0.02 10^3/uL (0.00-0.49); IMMATURE GRAN PERCENT AUTO 0.2 % (0.0-4.9); LYMPHOCYTES ABSOLUTE AUTO 2.39 10^3/uL (0.60-5.00); LYMPHOCYTES PERCENT AUTO 29.8 % (24-44); MONOCYTES ABSOLUTE AUTO 0.70 10^3/uL (0.00-1.50); MONOCYTES PERCENT AUTO 8.7 % (0-10); NEUTROPHILS ABSOLUTE AUTO 4.71 x10^3/uL (1.80-8.00); NEUTROPHILS PERCENT AUTO 58.9 % (41-71); PLATELET COUNT,PLT 246 10^3/uL (150-400); RED BLOOD CELL COUNT 4.92 x10^6/uL (4.00-5.50); WHITE BLOOD CELL COUNT,WBC 8.0 10^3/uL (4.0-11.0)
[2025-07-05 01:40] LABS: ALANINE AMINOTRANSFERASE,ALT 22.0 U/L (12-78); ASPARTATE AMNIOTRANSFERASE,AST 13.0 U/L (15-37); BILIRUBIN TOTAL 1.2 mg/dL (0.0-1.0); BLOOD UREA NITROGEN,BUN 15.0 mg/dL (7-18); CARBON DIOXIDE,CO2 25.0 mmol/L (21-32); CHLORIDE,CL 103.0 mEq/L (98-106); CREATININE 0.8 mg/dL (0.6-1.0); EST CRCL DRUG DOSING (CG) 55.68 mL/min; GLUCOSE RANDOM 133.0 mg/dL (75-99); POTASSIUM,K 3.4 mEq/L (3.5-5.0); PROTEIN TOTAL,TP 6.5 g/dL (6.4-8.2); SODIUM,NA 140.0 mEq/L (136-145)
[2025-07-05 01:41] LABS: ESTIMATED GFR 80.0 mL/min (>=60)
[2025-07-05] MEDS: Metoprolol Tartrate 5 MG/5 ML SDV IVPUSH ONE (02:24)
[2025-07-05] MEDS ORDERED: Ondansetron 4 MG Tab.DIS PO PRN (02:39)
[2025-07-05] MEDS ORDERED: Ondansetron 4 MG/2 ML SDV IV PRN (02:39)
[2025-07-05] MEDS: Diltiazem 25 MG/5 ML SDV IVPUSH ONE (03:32)
[2025-07-05] MEDS: Cholecalciferol (Vitamin D3) 25 MCG Tab PO SCH (07:48)
[2025-07-05 08:11] LABS: BASOPHILS ABSOLUTE AUTO 0.04 10^3/uL (0.00-0.50); BASOPHILS PERCENT AUTO 0.5 % (0-1); EOSINOPHILS ABSOLUTE AUTO 0.11 10^3/uL (0.00-1.50); EOSINOPHILS PERCENT AUTO 1.4 % (0-6); IMMATURE GRAN ABSOLUTE AUTO 0.02 10^3/uL (0.00-0.49); IMMATURE GRAN PERCENT AUTO 0.3 % (0.0-4.9); LYMPHOCYTES ABSOLUTE AUTO 1.91 10^3/uL (0.60-5.00); LYMPHOCYTES PERCENT AUTO 24.1 % (24-44); MONOCYTES ABSOLUTE AUTO 0.64 10^3/uL (0.00-1.50); MONOCYTES PERCENT AUTO 8.1 % (0-10); NEUTROPHILS ABSOLUTE AUTO 5.21 x10^3/uL (1.80-8.00); NEUTROPHILS PERCENT AUTO 65.6 % (41-71); PLATELET COUNT,PLT 264 10^3/uL (150-400); RED BLOOD CELL COUNT 5.09 x10^6/uL (4.00-5.50); WHITE BLOOD CELL COUNT,WBC 7.9 10^3/uL (4.0-11.0)
[2025-07-05 08:19] LABS: BLOOD UREA NITROGEN,BUN 13.0 mg/dL (7-18); CARBON DIOXIDE,CO2 25.0 mmol/L (21-32); CHLORIDE,CL 102.0 mEq/L (98-106); CREATININE 0.6 mg/dL (0.6-1.0); EST CRCL DRUG DOSING (CG) 74.23 mL/min; GLUCOSE RANDOM 107.0 mg/dL (75-99); POTASSIUM,K 3.9 mEq/L (3.5-5.0); SODIUM,NA 139.0 mEq/L (136-145)
[2025-07-05 08:24] LABS: ESTIMATED GFR 98.0 mL/min (>=60)
[2025-07-05] MEDS: Diltiazem 120 MG Cap.CD PO ONE ×2 (10:31→14:16)
[2025-07-05 14:21] VITALS: BP 111/55; PULSE 87
== END 2025-07-05 14:15 | disposition home or self-care (01) ==
LOC: CC.ED 00:54 → UNDOADMOB 02:00 → CC.MS 02:00 → UNDODISOB 14:15
PROVIDERS: ADMIT Nurse Practitioner Family; ATTEND Nurse Practitioner Family
DX: I48.91 Unspecified atrial fibrillation (principal); I10 Essential (primary) hypertension; F41.9 Anxiety disorder, unspecified; Z79.01 Long term (current) use of anticoagulants; Z88.1 Allergy status to other antibiotic agents; Z88.8 Allergy status to other drugs, medicaments and biological substances; Z88.2 Allergy status to sulfonamides; Z88.5 Allergy status to narcotic agent; Z79.899 Other long term (current) drug therapy
CPT/HCPCS: 36415; 71046; 80048; 80053; 83735; 84484; 85025; 86140; 93005; 96374; 96375; 99236; A9270-GY; G0378; J0616; J1163